=== PATIENT | female | born 1940 | race Caucasian/White ===

== ENCOUNTER → 2016-07-21 | Outpatient (CLI) | payer MEDICARE, OTHER | LOC: RAD 13:34 | PROVIDERS: ATTEND Internal Medicine Critical Care Medicine | DX: R91.8 Other nonspecific abnormal finding of lung field (principal) | CPT/HCPCS: 71250 ==

== ENCOUNTER 2016-11-14 23:11 | Inpatient (IN) | payer MEDICARE, OTHER ==
[2016-11-14] MEDS ORDERED: PREDNISONE 20 MG TABLET PO ONE (23:53)
[2016-11-14] MEDS ORDERED: IPRATROPIUM/ALBUTEROL 0.5-2.5 MG/3 ML AMPUL NEB ONE (23:53)
[2016-11-15] MEDS: ALBUTEROL SULFATE 0.083% NEB 2.5 MG/3 ML AMPUL NEB SCH ×2 (00:13→02:13)
--- NOTE | 2016-11-15 00:13 | ER Document Report ---
ED General - General Chief Complaint: Breathing Difficulty Stated Complaint: DIFFICULTY BREATHING,COUGH Time Seen by Provider: 11/15/16 00:02 Notes: Patient is a 75 year old female presents with complaint of cough, wheezing, congestion. She says symptoms started today. She's had no fevers. Some vomiting with coughing. No diarrhea. She does have history of asthma. She is a former smoker. She quit 25 years ago. No other complaints at this time. TRAVEL OUTSIDE OF THE [place] IN LAST 30 DAYS: No - Related Data Allergies/Adverse Reactions: Sulfa (Sulfonamide Antibiotics) Allergy (Verified 11/14/16 23:13) UNKNOWN lorazepam [From Ativan] Adverse Reaction (Mild, Verified 11/14/16 23:13) Confusion Irritability Past Medical History - Social History Smoking Status: Former Smoker Frequency of alcohol use: None Drug Abuse: None Family History: Arthritis, CAD, DM, Hyperlipidemia, Hypertension, Malignancy, Thyroid Disfunction - Past Medical History Cardiac Medical History: Reports: Hx Hypercholesterolemia, Hx Hypertension Denies: Hx Congestive Heart Failure, Hx Coronary Artery Disease, Hx DVT, Hx Heart Attack, Hx Pulmonary Embolism Pulmonary Medical History: Reports: Hx Asthma Denies: Hx Bronchitis, Hx COPD, Hx Pneumonia Neurological Medical History: Reports: Hx Migraine - Occasional migraine headaches, but not very often. Denies: Hx Cerebrovascular Accident, Hx Seizures Endocrine Medical History: Denies: Hx Diabetes Mellitus Type 1, Hx Diabetes Mellitus Type 2, Hx Hyperthyroidism, Hx Hypothyroidism Renal/ Medical History: Denies: Hx Peritoneal Dialysis Malignancy Medical History: Reports: Hx Skin Cancer - Previous excision of skin cancer from her face. GI Medical History: Reports: Hx Gastroesophageal Reflux Disease. Denies: Hx Cirrhosis, Hx Hepatitis, Hx Hiatal Hernia, Hx Ulcer Musculoskeltal Medical History: Reports Hx Arthritis, Reports Hx Musculoskeletal Deformity Psychiatric Medical History: Reports: Hx Anxiety Denies: Hx Depression Infectious Medical History: Denies: Hx Hepatitis Past Surgical History: Reports: Hx Tubal Ligation. Denies: Hx Hysterectomy, Hx Mastectomy, Hx Open Heart Surgery, Hx Pacemaker - Immunizations Immunizations up to date: No Hx Diphtheria, Pertussis, Tetanus Vaccination: No Hx Pneumococcal Vaccination: 07/05/09 Review of Systems - Review of Systems Notes: My Normal Review Basic REVIEW OF SYSTEMS: CONSTITUTIONAL : Denies fever, chills, or sweats. Denies recent illness. EENT: Denies eye, ear, throat, or mouth pain or symptoms. Denies nasal or sinus congestion. CARDIOVASCULAR: Denies chest pain. RESPIRATORY: Wheezing and difficulty breathing. GASTROINTESTINAL: Denies abdominal pain. Some vomiting. Denies constipation. Last BM: MUSCULOSKELETAL: Denies neck or back pain or joint pain or swelling. SKIN: Denies rash or skin lesions. NEUROLOGICAL: Denies altered mental status or loss of consciousness. Denies headache. Denies weakness or paralysis or loss of use of either side. Denies problems with gait or speech. Denies sensory or motor loss. ALL OTHER SYSTEMS REVIEWED AND NEGATIVE. Physical Exam - Vital signs Vitals: Temp Pulse Resp BP Pulse Ox 98.7 F 94 18 152/94 H 96 11/14/16 23:14 11/14/16 23:14 11/14/16 23:14 11/14/16 23:14 11/14/16 23:14 - Notes Notes: General Appearance: Well nourished, alert, cooperative, no acute distress, no obvious discomfort. Well-appearing Vitals: reviewed, See vital signs table. Head: no swelling or tenderness to the head Eyes: PERRL, EOMI, Conjuctiva clear Mouth: No decreasd moisture Throat: No tonsillar inflammation, No airway obstruction, No lymphadenopathy Neck: Supple, no neck tenderness, No thyromegaly Lungs: Scattered wheezing, No rales, No rhonci, No accessory muscle use, fair air exchange bilaterally. Heart: Normal rate, Regular rythm, No murmur, no rub Abdomen: Normal BS, soft, No rigidity, No abdominal tenderness, No guarding, no rebound, no abdominal masses, no organomegaly Extremities: strength 5/5 in all extremities, good pulses in all extremities, no swelling or tenderness in the extremities, no edema. Skin: warm, dry, appropriate color, no rash Neuro: speech clear, oriented x 3, normal affect, responds appropriately to questions. Course - Re-evaluation Re-evalutation: 11/15/16 01:40 On reevaluation patient still has some wheezing and coughing. Will give her another breathing treatment. I will give her magnesium. 11/15/16 03:30 Reevaluation patient is resting more comfortably; however, she actually says that she feels it's hard for her to get a brief and. She does not have a lot of wheezing and her lung quintanilla and selves however she seems very struggling to take a deep breath. Her oxygen saturation is in the low 90s. Her heart rate is in the 1 teens. I will repeat albuterol treatment. We are awaiting the rest of her labs to come back. 11/15/16 04:09 Reevaluation she looks like she is resting comfortably. We have her take deep breaths she starts coughing and wheezing again. Her oxygen saturation when I walked in the room is only 87-80%. She takes deep breaths her oxygen saturation comes up to 92%. She rest and bruits normally goes back down to the upper 80s. I have placed on 2 L nasal cannula. Due to her recurrent wheezing as well as hypoxia rested felt appropriate to admit her for further workup. I will call the hospitalist to speak with him about admission. - Vital Signs Vital signs: Temp Pulse Resp BP Pulse Ox 98.7 F 94 21 H 146/69 H 90 L 11/14/16 23:14 11/14/16 23:14 11/15/16 03:02 11/15/16 03:02 11/15/16 03:02 - Laboratory Result Diagrams: 11/15/16 02:19 11/15/16 03:09 Laboratory results interpreted by me: 11/15/16 11/15/16 02:19 03:09 WBC 11.4 H MCV 100 H MCH 34.7 H Seg Neuts % (Manual) 80 H Band Neutrophils % 8 H Lymphocytes % (Manual) 7 L Abs Neuts (Manual) 10.0 H Sodium 136.1 L Potassium 3.4 L BUN 30 H Est GFR (Non-Af Amer) 54 L Glucose 199 H - EKG Interpretation by Me Additional EKG results interpreted by me: 11/15/16 00:20 EKG is reviewed and interpreted by me. EKG shows sinus tachycardia with rate of [address] segment elevation or depression. Patient has a PVC every 4 beats.. Interval slightly prolonged. QRS duration QTC intervals are within normal range. Old EKG for comparison is from 04/09/2016. Discharge - Discharge Clinical Impression: Hypoxemia Dyspnea Qualifiers: Dyspnea type: unspecified Qualified Code(s): R06.00 - Dyspnea, unspecified Asthma Qualifiers: Asthma severity: unspecified severity Asthma complication type: with acute exacerbation Qualified Code(s): J45.901 - Unspecified asthma with (acute) exacerbation Condition: Stable Disposition: ADMITTED OBSERVATION Unit Admitted: Telemetry Referrals: THELMA RAMIRES PA-C [Primary Care Provider] - Follow up as needed
[2016-11-15] MEDS ORDERED: IPRATROPIUM/ALBUTEROL 0.5-2.5 MG/3 ML AMPUL NEB ONE (01:38)
[2016-11-15] MEDS ORDERED: MAGNESIUM SULFATE/D5W 100 ML IV SCH (01:45)
[2016-11-15 02:28] LABS: HEMATOCRIT 39.9 % (36.0-47.0); HEMOGLOBIN 13.8 g/dL (12.0-15.5); HGB HCT DIFFERENCE 1.5; MEAN CORPUSCULAR HEMOGLOBIN 34.7 pg (27.0-33.4); MEAN CORPUSCULAR HGB CONC 34.7 g/dL (32.0-36.0); MEAN CORPUSCULAR VOLUME 100 fl (80-97); RED BLOOD COUNT 3.98 10^6/uL (3.72-5.28); RED CELL DISTRIBUTION WIDTH 13.2 % (11.5-14.0); WHITE BLOOD COUNT 11.4 10^3/uL (4.0-10.5)
[2016-11-15] MEDS ORDERED: IBUPROFEN 600 MG TABLET PO ONE (02:45)
[2016-11-15 02:55] LABS: BAND NEUTROPHILS % (MANUAL) 8 % (3-5); BASOPHILS % (MANUAL) 0 % (0-2); EOSINOPHILS % (MANUAL) 0 % (0-6); LYMPHOCYTES % (MANUAL) 7 % (13-45); ROULEAUX SLIGHT; TOTAL CELLS COUNTED 100; TOXIC GRANULATION 1+
[2016-11-15] MEDS ORDERED: ALBUTEROL SULFATE 0.083% NEB 2.5 MG/3 ML AMPUL NEB ONE (03:29)
[2016-11-15 03:31] LABS: ANION GAP 13 (5-19); BLOOD UREA NITROGEN 30 mg/dL (7-20); CALCIUM 10.1 mg/dL (8.4-10.2); CARBON DIOXIDE 22 mmol/L (22-30); CHLORIDE 101 mmol/L (98-107); CREATININE RESULT 0.99 mg/dL (0.52-1.25); GLUCOSE 199 mg/dL (75-110); POTASSIUM 3.4 mmol/L (3.6-5.0); SODIUM 136.1 mmol/L (137-145)
[2016-11-15] MEDS ORDERED: POTASSIUM CHLORIDE 10 MEQ TABLET.SA PO ONE ×2 (04:05→10:30)
[2016-11-15] MEDS ORDERED: ALBUTEROL SULFATE 0.083% NEB 2.5 MG/3 ML AMPUL NEB PRN (04:41)
[2016-11-15] MEDS ORDERED: ACETAMINOPHEN 325 MG TABLET PO PRN (04:41)
[2016-11-15] MEDS ORDERED: CHLORPHENIRAMINE MALEATE 4 MG TABLET PO PRN (04:44)
[2016-11-15] MEDS ORDERED: LORATADINE 10 MG TABLET PO ONE (04:44)
[2016-11-15] MEDS ORDERED: CHLORPHENIRAMINE MALEATE 4 MG TABLET PO ONE (04:44)
[2016-11-15] MEDS ORDERED: BUDESONIDE/FORMOTEROL 80-4.5 MCG 60 PUFF/6.9 GM MDI IH PRN (04:44)
[2016-11-15] MEDS ORDERED: NORMAL SALINE 1000 ML 1,000 ML IV SCH (04:45)
[2016-11-15] MEDS ORDERED: CEFEPIME 2 GM/D5W RTU 2 GM/50 ML RTUPB IV SCH (05:00)
[2016-11-15] MEDS: METOPROLOL TARTRATE 50 MG TABLET PO SCH ×2 (05:39→17:45)
[2016-11-15] MEDS: HEPARIN SOD (PORCINE) 5,000 UNIT/ML 1 ML SYRINGE SUBCUT SCH ×3 (05:41→22:12)
[2016-11-15] MEDS ORDERED: FLUTICASONE NASAL SPRAY 50 MCG/SPRY 120 SPRAY/16 GM ONE (06:05)
[2016-11-15] MEDS ORDERED: CHLORPHENIRAMINE MALEATE 4 MG TABLET ONE (06:05)
[2016-11-15] MEDS: IPRATROPIUM/ALBUTEROL 0.5-2.5 MG/3 ML AMPUL NEB SCH ×2 (08:08→15:57)
[2016-11-15] MEDS ORDERED: ROPINIROLE HCL PO PRN (09:29)
[2016-11-15] MEDS: MAGNESIUM OXIDE 400 MG TABLET PO SCH ×2 (09:59→17:45)
[2016-11-15] MEDS: ASPIRIN 81 MG TABLET, CHEWABLE PO SCH (09:59)
[2016-11-15] MEDS: LEVOFLOXACIN 750 MG/D5W RTU 150 ML IV SCH (10:00)
[2016-11-15] MEDS ORDERED: (PENDING PHARMACY ID) (Lisinopril [Lisinopril] 1 TAB) PO SCH (10:00)
[2016-11-15] MEDS: FLUTICASONE NASAL SPRAY 50 MCG/SPRY 120 SPRAY/16 GM NASL SCH (10:00)
[2016-11-15] MEDS ORDERED: (PENDING PHARMACY ID) (Losartan/Hydrochlorothiazide [Hyzaar 100-25 Tablet] 1 EACH) PO SCH (10:00)
[2016-11-15] MEDS ORDERED: (PENDING PHARMACY ID) (Omeprazole [Prilosec 40 Mg Capsule] 40 MG) PO SCH (10:00)
[2016-11-15] MEDS ORDERED: ROPINIROLE HCL 1 MG TABLET PO PRN (10:25)
[2016-11-15] MEDS ORDERED: LOSARTAN POTASSIUM 50 MG TABLET PO ONE (11:30)
[2016-11-15] MEDS ORDERED: HYDROCHLOROTHIAZIDE 25 MG TABLET PO ONE (11:30)
--- NOTE | 2016-11-15 11:37 | EKG REPORT ---
SEVERITY:- ABNORMAL ECG - SINUS TACHYCARDIA PAIRED VENTRICULAR PREMATURE COMPLEXES FIRST DEGREE AV BLOCK PROBABLE LEFT ATRIAL ABNORMALITY : Confirmed by: Barry Rodgers 15-Nov-2016 11:36:44
[2016-11-15] MEDS: METHYLPREDNISOLONE INJ 40 MG/1 ML SDV IV SCH ×2 (13:38→22:12)
--- NOTE | 2016-11-15 13:46 | PDOC PROGRESS REPORT ---
Subjective Progress Note for:: 11/15/16 Subjective:: Patient seen on morning rounds. She is resting in bed. Her 2 daughters are at bedside. Patient states her breathing feels much easier than when she came in last night. She continues to have a nonproductive cough. She denies any significant dyspnea or chest pain. She denies any fever or chills. She denies any nausea, vomiting or abdominal pain. She states she is tired from being up all night. She otherwise has no complaints. Rest of the review of systems is normal. Physical Exam Vital Signs: Temp Pulse Resp BP Pulse Ox 98.7 F 87 8 L 130/67 H 100 11/15/16 11:54 11/15/16 11:54 11/15/16 11:54 11/15/16 11:54 11/15/16 11:54 Intake & Output 11/14/16 11/15/16 11/16/16 06:59 06:59 06:59 Intake Total 225 Balance 225 Weight 58.3 kg General appearance: PRESENT: no acute distress, well-developed, well-nourished Head exam: PRESENT: atraumatic, normocephalic Eye exam: PRESENT: conjunctiva pink, EOMI, PERRLA. ABSENT: scleral icterus Ear exam: PRESENT: normal external ear exam Mouth exam: PRESENT: dry mucosa Neck exam: ABSENT: carotid bruit, JVD, lymphadenopathy, thyromegaly Respiratory exam: PRESENT: decreased breath sounds - bilateral expiratory wheezing, symmetrical, unlabored, wheezes Cardiovascular exam: PRESENT: RRR. ABSENT: diastolic murmur, rubs, systolic murmur Pulses: PRESENT: normal dorsalis pedis pul Vascular exam: PRESENT: normal capillary refill GI/Abdominal exam: PRESENT: normal bowel sounds, soft. ABSENT: distended, guarding, mass, organolmegaly, rebound, tenderness Rectal exam: PRESENT: deferred Extremities exam: PRESENT: full ROM. ABSENT: calf tenderness, clubbing, pedal edema Neurological exam: PRESENT: alert, awake, oriented to person, oriented to place , oriented to time, oriented to situation, CN II-XII grossly intact. ABSENT: motor sensory deficit Psychiatric exam: PRESENT: appropriate affect, normal mood. ABSENT: homicidal ideation, suicidal ideation Skin exam: PRESENT: dry, intact, warm. ABSENT: cyanosis, rash Results Impressions: Chest X-Ray 11/14/16 23:54 IMPRESSION: No acute radiographic finding in the chest. Assessment & Plan - Diagnosis (1) Acute on chronic respiratory failure with hypoxemia Is this a current diagnosis for this admission?: YesPlan: Patient is on IV broad spectrum antibiotics, IV steroids and nebulizer treatments. She is not on home oxygen therapy (2) Asthma Qualifiers: Asthma severity: unspecified severity Asthma complication type: with acute exacerbation Qualified Code(s): J45.901 - Unspecified asthma with ( acute) exacerbation Is this a current diagnosis for this admission?: YesPlan: Continue home inhalers and medications (3) Dyspnea Qualifiers: Dyspnea type: unspecified Qualified Code(s): R06.00 - Dyspnea, unspecified Is this a current diagnosis for this admission?: YesPlan: Secondary to acute URI in setting of chronic asthma (4) Hypokalemia Is this a current diagnosis for this admission?: YesPlan: Replete and monitor (5) Nodule of right lung Is this a current diagnosis for this admission?: YesPlan: Monitor as an outpatient - Time Time Spent with patient: 25-34 minutes Critical Time spent with patient: 15-24 minutes Medications reviewed and adjusted accordingly: Yes
[2016-11-15] MEDS ORDERED: ATORVASTATIN CALCIUM 20 MG TABLET PO SCH (22:00)
[2016-11-15] MEDS: MONTELUKAST SODIUM 10 MG TABLET PO SCH (22:12)
[2016-11-15] MEDS ORDERED: CEFEPIME 2 GM/D5W RTU 2 GM/50 ML RTUPB IV ONE (22:30)
[2016-11-16] MEDS: IPRATROPIUM/ALBUTEROL 0.5-2.5 MG/3 ML AMPUL NEB SCH ×4 (00:26→23:48)
[2016-11-16 05:25] LABS: HEMATOCRIT 33.8 % (36.0-47.0); HGB HCT DIFFERENCE 1.3; MEAN CORPUSCULAR HEMOGLOBIN 34.7 pg (27.0-33.4); MEAN CORPUSCULAR HGB CONC 34.6 g/dL (32.0-36.0); MEAN CORPUSCULAR VOLUME 100 fl (80-97); RED BLOOD COUNT 3.37 10^6/uL (3.72-5.28); RED CELL DISTRIBUTION WIDTH 12.9 % (11.5-14.0); WHITE BLOOD COUNT 10.9 10^3/uL (4.0-10.5)
[2016-11-16 05:31] LABS: HEMOGLOBIN 11.7 g/dL (12.0-15.5)
[2016-11-16 05:37] LABS: BAND NEUTROPHILS % (MANUAL) 8 % (3-5); BASOPHILS % (MANUAL) 0 % (0-2); EOSINOPHILS % (MANUAL) 0 % (0-6); LYMPHOCYTES % (MANUAL) 4 % (13-45); TOTAL CELLS COUNTED 100
[2016-11-16 05:41] LABS: ANION GAP 13 (5-19); BLOOD UREA NITROGEN 24 mg/dL (7-20); CALCIUM 10.2 mg/dL (8.4-10.2); CARBON DIOXIDE 23 mmol/L (22-30); CHLORIDE 102 mmol/L (98-107); CREATININE RESULT 0.95 mg/dL (0.52-1.25); GLUCOSE 155 mg/dL (75-110); PLATELET CLUMPS PRESENT; POIKILOCYTOSIS SLIGHT; POLYCHROMASIA SLIGHT; POTASSIUM 3.9 mmol/L (3.6-5.0); SODIUM 138.2 mmol/L (137-145); TARGET CELLS SLIGHT
[2016-11-16 05:42] LABS: TOXIC GRANULATION 1+
[2016-11-16] MEDS: HEPARIN SOD (PORCINE) 5,000 UNIT/ML 1 ML SYRINGE SUBCUT SCH ×3 (06:01→21:24)
[2016-11-16] MEDS: METHYLPREDNISOLONE INJ 40 MG/1 ML SDV IV SCH ×2 (06:01→21:24)
[2016-11-16] MEDS: METOPROLOL TARTRATE 50 MG TABLET PO SCH ×2 (06:02→17:26)
[2016-11-16] MEDS: LANSOPRAZOLE 30 MG TAB.RAP.DR PO SCH (06:02)
--- NOTE | 2016-11-16 07:13 | PDOC H&P ---
History of Present Illness Admission Date/PCP: 11/15/16 04:41 THELMA RAMIRES PA-C Patient complains of: Shortness of breath History of Present Illness: JANINE TAYLOR is a 75 year old female with history of COPD. Patient has complaint of 4 days of upper respiratory symptoms of rhinorrhea and sore throat with intermittent nonproductive cough developing shortness of breath prompting her to seek evaluation emergency room where she's found to be tachypneic with leukocytosis. She receive several breathing treatments without significant response and is referred to the hospitalist for admission. Patient denies chest pain nausea vomiting or palpitations denying recent change in medications. Past Medical History Cardiac Medical History: Reports: Hyperlipidema, Hypertension Denies: Congestive Heart Failure, Coronary Artery Disease, DVT, Myocardial Infarction, Pulmonary Embolism Pulmonary Medical History: Reports: Asthma Denies: Bronchitis, Chronic Obstructive Pulmonary Disease (COPD), Pneumonia Neurological Medical History: Reports: Migraine - Occasional migraine headaches , but not very often Denies: Seizures Endocrine Medical History: Denies: Diabetes Mellitus Type 1, Diabetes Mellitus Type 2, Hyperthyroidism, Hypothyroidism Malignancy Medical History: Reports: Skin Cancer - Previous excision of skin cancer from her face. GI Medical History: Reports: Gastroesophageal Reflux Disease Denies: Cirrhosis, Hepatitis, Hiatal Hernia Musculoskeltal Medical History: Reports: Arthritis Psychiatric Medical History: Denies: Depression Hematology: Reports: Anemia - HX OF Denies: Sickle Cell Disease Past Surgical History Past Surgical History: Reports: Tubal Ligation Denies: Amputation, Hysterectomy, Mastectomy, Pacemaker Social History Information Source: Patient Lives with: Family Smoking Status: Former Smoker Cigarettes Packs Per Day: 1 Cigars Per Day: 0 Pipes Per Day: 0 Number of Years Smokin Last Time Smoked: 07/05/1994 Frequency of Alcohol Use: Social Hx Recreational Drug Use: No Drugs: None Hx Prescription Drug Abuse: No - Advance Directive Resuscitation Status: Full Code Family History Family History: Arthritis, CAD, DM, Hyperlipidemia, Hypertension, Malignancy, Thyroid Disfunction Parental Family History Reviewed: Yes Children Family History Reviewed: Yes Sibling(s) Family History Reviewed.: Yes Medication/Allergy Home Medications: Aspirin [Aspirin 81 mg Chewable Tablet] 81 mg PO DAILY 12/08/11 Atorvastatin Calcium [Lipitor 20 mg Tablet] 10 mg PO QHS 12/08/11 Metoprolol Tartrate [Lopressor 50 mg Tablet] 50 mg PO Q12 12/08/11 Omeprazole [Prilosec 40 mg Capsule] 40 mg PO DAILY 12/08/11 Budesonide/Formoterol Fumarate [Symbicort HFA 80-4.5 mcg Inhaler 6.9 gm] 1 puff IH QHS 09/07/12 Epinephrine [Epipen 0.3 mg/0.3 mL AutoInject] 1 ea IM ASDIR PRN #1 autoinject Albuterol Sulfate [Proair HFA Inhalation Aerosol 8.5 gm MDI] 2 puff IN Q4HP PRN 04/08/16 Lisinopril 20 mg PO BID 04/08/16 Montelukast Sodium 10 mg PO QHS 04/08/16 Ropinirole HCl 1 tab PO DAILY PRN 04/08/16 Acetaminophen [Tylenol 325 mg Tablet] 650 mg PO Q4HP PRN 11/15/16 Docusate Sodium [Colace 100 mg Capsule] 100 mg PO BID PRN 11/15/16 Losartan/Hydrochlorothiazide [Hyzaar 100-25 Tablet] 1 each PO DAILY 11/15/16 Allergies/Adverse Reactions: Sulfa (Sulfonamide Antibiotics) Allergy (Verified 11/14/16 23:13) UNKNOWN lorazepam [From Ativan] Adverse Reaction (Mild, Verified 11/14/16 23:13) Confusion Irritability Review of Systems Constitutional: ABSENT: chills, fever(s), headache(s), weight gain, weight loss Eyes: ABSENT: visual disturbances Ears: ABSENT: hearing changes Cardiovascular: ABSENT: chest pain, dyspnea on exertion, edema, orthropnea, palpitations Respiratory: PRESENT: cough, dyspnea. ABSENT: hemoptysis, sputum Gastrointestinal: ABSENT: abdominal pain, constipation, diarrhea, hematemesis, hematochezia, nausea, vomiting Genitourinary: ABSENT: dysuria, hematuria Musculoskeletal: ABSENT: joint swelling Integumentary: ABSENT: rash, wounds Neurological: ABSENT: abnormal gait, abnormal speech, confusion, dizziness, focal weakness, syncope Psychiatric: ABSENT: anxiety, depression, homidical ideation, suicidal ideation Endocrine: ABSENT: cold intolerance, heat intolerance, polydipsia, polyuria Hematologic/Lymphatic: ABSENT: easy bleeding, easy bruising Physical Exam Vital Signs: Temp Pulse Resp BP Pulse Ox 98.6 F 88 18 133/66 H 100 11/16/16 03:53 11/16/16 03:53 11/16/16 03:53 11/16/16 03:53 11/16/16 03:53 Intake & Output 11/14/16 11/15/16 11/16/16 11:59 11:59 11:59 Intake Total 225 1030 Balance 225 1030 Weight 58.3 kg 59.2 kg General appearance: PRESENT: cooperative, mild distress, thin Head exam: PRESENT: atraumatic, normocephalic Eye exam: PRESENT: conjunctiva pink, EOMI, PERRLA. ABSENT: scleral icterus Ear exam: PRESENT: normal external ear exam Mouth exam: PRESENT: moist, tongue midline Neck exam: ABSENT: carotid bruit, JVD, lymphadenopathy, thyromegaly Respiratory exam: PRESENT: accessory muscle use, prolonged expiratory phas, retraction, symmetrical, tachypnea, wheezes. ABSENT: rhonchi, stridor Cardiovascular exam: PRESENT: RRR. ABSENT: diastolic murmur, rubs, systolic murmur Pulses: PRESENT: normal dorsalis pedis pul Vascular exam: PRESENT: normal capillary refill GI/Abdominal exam: PRESENT: normal bowel sounds, soft. ABSENT: distended, guarding, mass, organolmegaly, rebound, tenderness Rectal exam: PRESENT: deferred Extremities exam: PRESENT: full ROM. ABSENT: calf tenderness, clubbing, pedal edema Neurological exam: PRESENT: alert, awake, oriented to person, oriented to place , oriented to time, oriented to situation, CN II-XII grossly intact. ABSENT: motor sensory deficit Psychiatric exam: PRESENT: appropriate affect, normal mood. ABSENT: homicidal ideation, suicidal ideation Skin exam: PRESENT: dry, intact, warm. ABSENT: cyanosis, rash Results Laboratory Results: 11/16/16 04:25 11/16/16 04:25 11/16/16 11/16/16 04:25 04:25 WBC 10.9 H RBC 3.37 L Hgb 11.7 L D Hct 33.8 L MCV 100 H MCH 34.7 H MCHC 34.6 RDW 12.9 Plt Count 178 Seg Neutrophils % Not Reportable Lymphocytes % Not Reportable Monocytes % Not Reportable Eosinophils % Not Reportable Basophils % Not Reportable Absolute Neutrophils Not Reportable Absolute Lymphocytes Not Reportable Absolute Monocytes Not Reportable Absolute Eosinophils Not Reportable Absolute Basophils Not Reportable Sodium 138.2 Potassium 3.9 Chloride 102 Carbon Dioxide 23 Anion Gap 13 BUN 24 H Creatinine 0.95 Est GFR ( Amer) > 60 Est GFR (Non-Af Amer) 57 L Glucose 155 H Calcium 10.2 Impressions: Chest X-Ray 11/14/16 23:54 IMPRESSION: No acute radiographic finding in the chest. Assessment & Plan - Diagnosis (1) Acute exacerbation of chronic bronchitis Is this a current diagnosis for this admission?: YesPlan: Empiric antibiotics, albuterol and Atrovent, supplemental oxygen, flutter valve and aggressive pulmonary toilet (2) Acute on chronic respiratory failure with hypoxemia Is this a current diagnosis for this admission?: YesPlan: Please see #1 consider follow-up chest x-ray or CT chest given tobacco history - Time Time Spent: 30 to 50 Minutes
--- NOTE | 2016-11-16 07:59 | Physician Advisory Note ---
Physician Advisor ProgressNote .: Pursuant to the plan for [facility], I have reviewed the medical record for this patient. Physician Advisor Statement: Possible documentation opportunities if attending agrees: 1. Status/medical necessity: appropriate for Inpt status with explicit documentation of why pt not yet sufficiently improved clinically for d/c on . (see below) - Need to make it clear she wasn't just kept for convenience because she was sleepy from being up all night.... (This reviewer can "read between the lines", but outside reviewers won't.) 2. "mild hyponatremia, likely due to intravascular volume depletion, due to decreased po intake from difficulty breathing" [or ...] 3. ?"Acute bronchitis", or what is being tx'd w/IV abx 4. Please specify type of asthma present. Dx of type of chronic asthma is based on worst category in which pt has at least 1 of following s/s present at baseline: A. Mild Intermittent: only needs albuterol occasionally. B. Mild Persistent: sx >2x/wk, nocturnal sx up to 4x/mo, FEV1 80+% predicted C. Mod Persistent: sx (or albuterol) daily, nocturnal sx >1x/wk, FEV1 60-80% predicted D. Severe Persistent: activities curtailed, frequent exacerbations, noct sx frequent, FEV1 <60% predicted. As always, if concerned about any unstable VS or abnormal labs, please comment on them - what bad things they might indicate, why they concern you - & note what doing about them. Please also document each day the potential clinical problems you are concerned could occur if pt not kept in hospital for tx at this time. (These points are minor - if present in each note, attending's status decision should be sufficiently supported.) Discussion: 75yo female w/ chronic co-morbidities including __type asthma, ?COPD, & GERD, HTN, HLD - presented late 5/13 PM to ED w/SOB, cough to the point of vomiting, wheezing , congestion. (+) HR 94, RR 18-23, O2 sats as low as 87% at rest in ED, still w/accessory muscle use & retractions at time of H&P. WBC 11.4, Na 136, K 3.4, BUN 30, Cr 0.99, glc 199. ED dr sayra Lemus x2, albuterol nebx q15min x2 & still a 3rd + IV Mag, Prednisone 60mg. Attending ordered Cefepime, Levaquin, Duonebs q8h, albuterol nebs prn, NS @200ml /hr x 2L, Solumedrol 40mg IV q8h. Status: This elderly Medicare pt with asthma exacerbation was still wheezing & coughing with deep breaths after several nebs + IV Mag in ED, still "struggling to take a deep breath", & hypoxemic, with tachypnea as high as 37 at 3AM on 11/15 & persistent tachycardia above 100 until at least 6AM. By time of rounding on , breathing easier but still decreased breath sounds & expiratory wheezing, Not sufficiently improved for d/c, & certainly not yet showing ability to maintain improvement sufficiently for d/c to be considered safe. Needing continued tx & close monitoring for at least a 2nd MN in inpatient hospital setting, medically reasonable & necessary to protect pt's health, safety, & medical condition. Appropriate for Inpt status with explicit documentation of reasons she could not go home 11/15. Also, after 2MNs in hospital, pt still w/BUN/Cr ratio >20 consistent with continued intravascular volume depletion despite 2L IVF.... Thanks for your help with documentation accuracy/specificity improvement! Jaimee Jean MD [facility] Physician Advisor, Fellow of Hospital Medicine
[2016-11-16] MEDS ORDERED: CHLORPHENIRAMINE MALEATE 4 MG TABLET PO PRN (08:49)
[2016-11-16] MEDS: LISINOPRIL 10 MG TABLET PO SCH ×2 (09:21→21:24)
[2016-11-16] MEDS: MAGNESIUM OXIDE 400 MG TABLET PO SCH ×2 (09:22→17:26)
[2016-11-16] MEDS: ASPIRIN 81 MG TABLET, CHEWABLE PO SCH (09:22)
[2016-11-16] MEDS: HYDROCHLOROTHIAZIDE 25 MG TABLET PO SCH (09:22)
[2016-11-16] MEDS: LOSARTAN POTASSIUM 50 MG TABLET PO SCH (09:22)
[2016-11-16] MEDS: CEFEPIME HCL 2 GM in DEXTROSE 5%-WATER 50 ML IV SCH ×2 (09:23→21:28)
[2016-11-16] MEDS: LEVOFLOXACIN 750 MG/D5W RTU 150 ML IV SCH (09:23)
[2016-11-16] MEDS: FLUTICASONE NASAL SPRAY 50 MCG/SPRY 120 SPRAY/16 GM NASL SCH (09:24)
[2016-11-16] MEDS: BUDESONIDE/FORMOTEROL 80-4.5 MCG 60 PUFF/6.9 GM MDI IH SCH (11:32)
--- NOTE | 2016-11-16 14:24 | PDOC PROGRESS REPORT ---
Subjective Progress Note for:: 11/16/16 Subjective:: Patient seen on morning rounds. She is resting in bed. Her 2 daughters are at bedside. Patient states her breathing is improved since admission. She is still having harsh cough and moderate intermittent wheezing. She denies any significant dyspnea or chest pain. She denies any fever or chills. She denies any nausea, vomiting or abdominal pain. She otherwise has no complaints. Rest of the review of systems is normal. Physical Exam Vital Signs: Temp Pulse Resp BP Pulse Ox 98.0 F 84 16 131/57 H 97 11/16/16 12:46 11/16/16 12:46 11/16/16 12:46 11/16/16 12:46 11/16/16 12:46 Intake & Output 11/15/16 11/16/16 11/17/16 06:59 06:59 06:59 Intake Total 1255 Balance 1255 Weight 59.2 kg General appearance: PRESENT: no acute distress, well-developed, well-nourished Head exam: PRESENT: atraumatic, normocephalic Eye exam: PRESENT: conjunctiva pink, EOMI, PERRLA. ABSENT: scleral icterus Ear exam: PRESENT: normal external ear exam Mouth exam: PRESENT: moist, tongue midline Neck exam: ABSENT: carotid bruit, JVD, lymphadenopathy, thyromegaly Respiratory exam: PRESENT: symmetrical, unlabored - mild expiratory wheezes, wheezes Cardiovascular exam: PRESENT: RRR. ABSENT: diastolic murmur, rubs, systolic murmur Pulses: PRESENT: normal dorsalis pedis pul Vascular exam: PRESENT: normal capillary refill GI/Abdominal exam: PRESENT: normal bowel sounds, soft. ABSENT: distended, guarding, mass, organolmegaly, rebound, tenderness Rectal exam: PRESENT: deferred Extremities exam: PRESENT: full ROM. ABSENT: calf tenderness, clubbing, pedal edema Neurological exam: PRESENT: alert, awake, oriented to person, oriented to place , oriented to time, oriented to situation, CN II-XII grossly intact. ABSENT: motor sensory deficit Psychiatric exam: PRESENT: appropriate affect, normal mood. ABSENT: homicidal ideation, suicidal ideation Skin exam: PRESENT: dry, intact, warm. ABSENT: cyanosis, rash Results Laboratory Results: 11/16/16 04:25 11/16/16 04:25 11/16/16 11/16/16 04:25 04:25 WBC 10.9 H RBC 3.37 L Hgb 11.7 L D Hct 33.8 L MCV 100 H MCH 34.7 H MCHC 34.6 RDW 12.9 Plt Count 178 Seg Neutrophils % Not Reportable Lymphocytes % Not Reportable Monocytes % Not Reportable Eosinophils % Not Reportable Basophils % Not Reportable Absolute Neutrophils Not Reportable Absolute Lymphocytes Not Reportable Absolute Monocytes Not Reportable Absolute Eosinophils Not Reportable Absolute Basophils Not Reportable Sodium 138.2 Potassium 3.9 Chloride 102 Carbon Dioxide 23 Anion Gap 13 BUN 24 H Creatinine 0.95 Est GFR ( Amer) > 60 Est GFR (Non-Af Amer) 57 L Glucose 155 H Calcium 10.2 Impressions: Chest X-Ray 11/14/16 23:54 IMPRESSION: No acute radiographic finding in the chest. Assessment & Plan - Diagnosis (1) Acute on chronic respiratory failure with hypoxemia Is this a current diagnosis for this admission?: YesPlan: Patient is on IV broad spectrum antibiotics for acute bronchitis versus early CAP, IV steroids and nebulizer treatments. She is not on home oxygen therapy. Oxygen saturations have improved overnight. (2) Asthma Qualifiers: Asthma severity: moderate persistent Asthma complication type: with acute exacerbation Qualified Code(s): J45.41 - Moderate persistent asthma with (acute) exacerbation Is this a current diagnosis for this admission?: Yes (3) Dyspnea Qualifiers: Dyspnea type: shortness of breath Qualified Code(s): R06.02 - Shortness of breath Is this a current diagnosis for this admission?: YesPlan: Secondary to acute bronchitis in setting of chronic moderate asthma (4) Hypokalemia Is this a current diagnosis for this admission?: YesPlan: Replete and monitor (5) Nodule of right lung Is this a current diagnosis for this admission?: YesPlan: Monitor as an outpatient - Time Time Spent with patient: 25-34 minutes Critical Time spent with patient: 15-24 minutes Medications reviewed and adjusted accordingly: Yes Anticipated discharge: Home Within: within 24 hours
[2016-11-16] MEDS: MONTELUKAST SODIUM 10 MG TABLET PO SCH (21:24)
[2016-11-16] MEDS ORDERED: ATORVASTATIN CALCIUM 10 MG TABLET PO SCH (22:00)
[2016-11-17] MEDS: METOPROLOL TARTRATE 50 MG TABLET PO SCH (05:58)
[2016-11-17] MEDS: HEPARIN SOD (PORCINE) 5,000 UNIT/ML 1 ML SYRINGE SUBCUT SCH (05:58)
[2016-11-17] MEDS: LANSOPRAZOLE 30 MG TAB.RAP.DR PO SCH (05:58)
[2016-11-17] MEDS: IPRATROPIUM/ALBUTEROL 0.5-2.5 MG/3 ML AMPUL NEB SCH (07:40)
[2016-11-17] MEDS ORDERED: LEVOFLOXACIN 750 MG TABLET PO SCH (10:00)
[2016-11-17] MEDS: MAGNESIUM OXIDE 400 MG TABLET PO SCH (10:23)
[2016-11-17] MEDS: BUDESONIDE/FORMOTEROL 80-4.5 MCG 60 PUFF/6.9 GM MDI IH SCH (10:24)
[2016-11-17] MEDS: HYDROCHLOROTHIAZIDE 25 MG TABLET PO SCH (10:24)
[2016-11-17] MEDS: ASPIRIN 81 MG TABLET, CHEWABLE PO SCH (10:24)
[2016-11-17] MEDS: LOSARTAN POTASSIUM 50 MG TABLET PO SCH (10:25)
[2016-11-17] MEDS: LISINOPRIL 10 MG TABLET PO SCH (10:25)
[2016-11-17] MEDS: FLUTICASONE NASAL SPRAY 50 MCG/SPRY 120 SPRAY/16 GM NASL SCH (10:26)
[2016-11-17] MEDS: CEFEPIME HCL 2 GM in DEXTROSE 5%-WATER 50 ML IV SCH (10:30)
[2016-11-17] MEDS: METHYLPREDNISOLONE INJ 40 MG/1 ML SDV IV SCH (10:30)
[2016-11-17 12:26] VITALS: BP 155/74
--- NOTE | 2016-11-17 16:22 | PDOC DISCHARGE SUMMARY ---
General - Admit/Disc Date/PCP Admission Date/Primary Care Provider: 11/15/16 08:55 THELMA RAMIRES PA-C Discharge Date: 11/17/16 - Discharge Diagnosis (1) Acute exacerbation of chronic bronchitis Is this a current diagnosis for this admission?: YesSummary: The patient has responded to current antibiotic coverage will transition to by mouth therapy (2) Acute on chronic respiratory failure with hypoxemia Is this a current diagnosis for this admission?: YesSummary: Secondary to #1 this has improved (3) Asthma Is this a current diagnosis for this admission?: Yes (4) Hypokalemia Is this a current diagnosis for this admission?: YesSummary: Replaced (5) Nodule of right lung Is this a current diagnosis for this admission?: YesSummary: Will require monitoring in outpatient setting (6) Hyponatremia Is this a current diagnosis for this admission?: YesSummary: Improved with hydration (7) Thoracic compression fracture Is this a current diagnosis for this admission?: No - Additional Information Resuscitation Status: Full Code Discharge Diet: As Tolerated Discharge Activity: Activity As Tolerated Home Medications: Aspirin [Aspirin 81 mg Chewable Tablet] 81 mg PO DAILY 12/08/11 Atorvastatin Calcium [Lipitor 20 mg Tablet] 10 mg PO QHS 12/08/11 Metoprolol Tartrate [Lopressor 50 mg Tablet] 50 mg PO Q12 12/08/11 Omeprazole [Prilosec 40 mg Capsule] 40 mg PO DAILY 12/08/11 Budesonide/Formoterol Fumarate [Symbicort HFA 80-4.5 mcg Inhaler 6.9 gm] 1 puff IH QHS 09/07/12 Epinephrine [Epipen 0.3 mg/0.3 mL AutoInject] 1 ea IM ASDIR PRN #1 autoinject Albuterol Sulfate [Proair HFA Inhalation Aerosol 8.5 gm MDI] 2 puff IN Q4HP PRN 04/08/16 Lisinopril 20 mg PO BID 04/08/16 Montelukast Sodium 10 mg PO QHS 04/08/16 Ropinirole HCl 1 tab PO DAILY PRN 04/08/16 Acetaminophen [Tylenol 325 mg Tablet] 650 mg PO Q4HP PRN 11/15/16 Docusate Sodium [Colace 100 mg Capsule] 100 mg PO BID PRN 11/15/16 Losartan/Hydrochlorothiazide [Hyzaar 100-25 Tablet] 1 each PO DAILY 11/15/16 Cefpodoxime Proxetil [Vantin 100 mg Tablet] 1 tab PO Q12 #14 tab 11/17/16 Fluticasone Propionate [Flonase Nasal [place] 50 Mcg/[place] 16 gm] 2 spray NASL DAILY #1 spray.pump 11/17/16 Levofloxacin [Levaquin 750 mg Tablet] 750 mg PO DAILY #7 tablet 11/17/16 Prednisone [Deltasone 10 mg Tablet] 10 mg PO ASDIR PRN #21 tablet 11/17/16 History of Present Illness Patient complains of: Shortness of breath History of Present Illness: JANINE TAYLOR is a 75 year old female with history of chronic obstructive pulmonary disease that presented to the emergency department with complaint of 4 days of upper respiratory symptoms of rhinorrhea and sore throat with intermittent nonproductive cough developing shortness of breath. Upon presentation the patient was found to be tachypneic with leukocytosis. The patient received several breathing treatments without significant response and is referred to the hospitalist for admission. Patient denied chest pain nausea vomiting or palpitations denying recent change in medications. Hospital Course Hospital Course: The patient was admitted to telemetry. The patient was placed on scheduled nebs as well as PRN nebs, steroids, and supplemental oxygen. The patient was also started on Flonase and incentive spirometer. Given the patient's risk factors she was covered with stool antibiotic coverage with improvement of symptoms. The patient's oxygen, steroids, and nebs were titrated and weaned. Unfortunately sputum specimen was unable to be produce. The patient is back to baseline and able to complete sentences. The patient was ambulated on room air and oxygen did not drop below 93%. Physical Exam Vital Signs: Temp Pulse Resp BP Pulse Ox 98.1 F 75 16 152/67 H 93 11/17/16 11:44 11/17/16 11:44 11/17/16 11:44 11/17/16 11:44 11/17/16 11:44 Intake & Output 11/15/16 11/16/16 11/17/16 23:59 23:59 23:59 Intake Total 1255 940 Balance 1255 940 Weight 59.2 kg 59 kg General appearance: PRESENT: no acute distress, cooperative, well-developed, well-nourished Head exam: PRESENT: atraumatic, normocephalic Eye exam: PRESENT: conjunctiva pink, EOMI, PERRLA. ABSENT: scleral icterus Ear exam: PRESENT: normal external ear exam Mouth exam: PRESENT: moist, tongue midline Neck exam: ABSENT: carotid bruit, JVD, lymphadenopathy, thyromegaly Respiratory exam: PRESENT: decreased breath sounds, symmetrical, unlabored. ABSENT: rales, rhonchi, tachypnea, wheezes Cardiovascular exam: PRESENT: RRR. ABSENT: diastolic murmur, rubs, systolic murmur Pulses: PRESENT: normal dorsalis pedis pul Vascular exam: PRESENT: normal capillary refill GI/Abdominal exam: PRESENT: normal bowel sounds, soft. ABSENT: distended, guarding, mass, organolmegaly, rebound, tenderness Rectal exam: PRESENT: deferred Extremities exam: PRESENT: full ROM. ABSENT: calf tenderness, clubbing, pedal edema Neurological exam: PRESENT: alert, awake, oriented to person, oriented to place , oriented to time, oriented to situation, CN II-XII grossly intact. ABSENT: motor sensory deficit Psychiatric exam: PRESENT: appropriate affect, normal mood. ABSENT: homicidal ideation, suicidal ideation Skin exam: PRESENT: dry, intact, warm. ABSENT: cyanosis, rash Results Laboratory Results: Labs- Last Values WBC 10.9 10^3/uL (4.0-10.5) H 11/16/16 04:25 RBC 3.37 10^6/uL (3.72-5.28) L 11/16/16 04:25 Hgb 11.7 g/dL (12.0-15.5) L D 11/16/16 04:25 Hct 33.8 % (36.0-47.0) L 11/16/16 04:25 MCV 100 fl (80-97) H 11/16/16 04:25 MCH 34.7 pg (27.0-33.4) H 11/16/16 04:25 MCHC 34.6 g/dL (32.0-36.0) 11/16/16 04:25 RDW 12.9 % (11.5-14.0) 11/16/16 04:25 Plt Count 178 10^3/uL (150-450) 11/16/16 04:25 Total Counted 100 11/16/16 04:25 Seg Neutrophils % Not Reportable 11/16/16 04:25 Seg Neuts % (Manual) 85 % (42-78) H 11/16/16 04:25 Band Neutrophils % 8 % (3-5) H 11/16/16 04:25 Lymphocytes % Not Reportable 11/16/16 04:25 Lymphocytes % (Manual) 4 % (13-45) L 11/16/16 04:25 Atypical Lymphs % 2 % (0) 11/15/16 02:19 Monocytes % Not Reportable 11/16/16 04:25 Monocytes % (Manual) 3 % (3-13) 11/16/16 04:25 Eosinophils % Not Reportable 11/16/16 04:25 Eosinophils % (Manual) 0 % (0-6) 11/16/16 04:25 Basophils % Not Reportable 11/16/16 04:25 Basophils % (Manual) 0 % (0-2) 11/16/16 04:25 Absolute Neutrophils Not Reportable 11/16/16 04:25 Abs Neuts (Manual) 10.1 10^3/uL (1.7-8.2) H 11/16/16 04:25 Absolute Lymphocytes Not Reportable 11/16/16 04:25 Abs Lymphs (Manual) 0.4 10^3/uL (0.5-4.7) L 11/16/16 04:25 Absolute Monocytes Not Reportable 11/16/16 04:25 Abs Monocytes (Manual) 0.3 10^3/uL (0.1-1.4) 11/16/16 04:25 Absolute Eosinophils Not Reportable 11/16/16 04:25 Absolute Eos (Manual) 0.0 10^3/uL (0.0-0.6) 11/16/16 04:25 Absolute Basophils Not Reportable 11/16/16 04:25 Abs Basophils (Manual) 0.0 10^3/uL (0.0-0.2) 11/16/16 04:25 Toxic Granulation 1+ 11/16/16 04:25 Clumped Platelets PRESENT 11/16/16 04:25 Platelet Comment ADEQUATE 11/16/16 04:25 Polychromasia SLIGHT 11/16/16 04:25 Poikilocytosis SLIGHT 11/16/16 04:25 Macrocytosis 1+ 11/16/16 04:25 Target Cells SLIGHT 11/16/16 04:25 Rouleaux SLIGHT 11/15/16 02:19 Sodium 138.2 mmol/L (137-145) 11/16/16 04:25 Potassium 3.9 mmol/L (3.6-5.0) 11/16/16 04:25 Chloride 102 mmol/L (98-107) 11/16/16 04:25 Carbon Dioxide 23 mmol/L (22-30) 11/16/16 04:25 Anion Gap 13 (5-19) 11/16/16 04:25 BUN 24 mg/dL (7-20) H 11/16/16 04:25 Creatinine 0.95 mg/dL (0.52-1.25) 11/16/16 04:25 Est GFR ( Amer) > 60 (>60) 11/16/16 04:25 Est GFR (Non-Af Amer) 57 (>60) L 11/16/16 04:25 Glucose 155 mg/dL (75-110) H 11/16/16 04:25 Calcium 10.2 mg/dL (8.4-10.2) 11/16/16 04:25 Magnesium 2.6 mg/dL (1.6-2.3) H 11/15/16 03:09 Impressions: Chest X-Ray 11/14/16 23:54 IMPRESSION: No acute radiographic finding in the chest. Qualifiers PATEINT BEING DISCHARGED WITH ANY OF THE FOLLOWING DIAGNOSIS?: No Plan Discharge Plan: The patient is a follow with primary care provider within one week for hospital follow-up. The patient will also need to follow-up pulmonary nodule. Time Spent: Less than 30 Minutes
== END 2016-11-17 13:05 | disposition home or self-care (01) | DRG 190 ==
LOC: ER 23:11 → EH 11-15 04:41 → 4S 11-15 07:53 → OBSVTOIN 11-15 08:55
PROVIDERS: ADMIT Internal Medicine; ATTEND Internal Medicine
DX: J44.1 Chronic obstructive pulmonary disease with (acute) exacerbation (principal); J96.21 Acute and chronic respiratory failure with hypoxia; J45.41 Moderate persistent asthma with (acute) exacerbation; E87.1 Hypo-osmolality and hyponatremia; E87.6 Hypokalemia; R91.1 Solitary pulmonary nodule; E78.5 Hyperlipidemia, unspecified; I10 Essential (primary) hypertension; K21.9 Gastro-esophageal reflux disease without esophagitis; Z87.891 Personal history of nicotine dependence; Z79.82 Long term (current) use of aspirin; Z79.51 Long term (current) use of inhaled steroids; Z79.899 Other long term (current) drug therapy; Z88.2 Allergy status to sulfonamides; Z88.8 Allergy status to other drugs, medicaments and biological substances
CPT/HCPCS: 36415; 71010; 80048; 83735; 85025; 93005; 93010; 94640; 94667; 94668; 94799; 96360; 96361; 99285; G0378; J0692; J1644; J1956; J2920; J3475; J3490; J7030; J7512; J7620

== ENCOUNTER 2016-12-03 17:32 | Emergency (ER) | payer MEDICARE, OTHER ==
--- NOTE | 2016-12-03 19:39 | ER Document Report ---
ED Medical Screen (RME) - General Chief Complaint: Vomiting Stated Complaint: STOMACH PAIN Time Seen by Provider: 12/03/16 19:37 Notes: Patient has not been feeling well this week. She has had some swelling of her feet for about 3 days. She went to see a local doctor Analilia who did some blood work and they called today to say that her renal function was decreased and her blood sugar was increased, at 140. Patient says she vomited all day today. Had some diarrhea yesterday. Had a headache since this morning. Her bones are aching and her back hurts. Not sure if you have fever, but has felt cold and had chills. Patient was admitted to [facility] for 3 or 4 day stay for bronchitis about a month ago. No known heart disease. Not diabetic. TRAVEL OUTSIDE OF THE [place] IN LAST 30 DAYS: No - Related Data Allergies/Adverse Reactions: Sulfa (Sulfonamide Antibiotics) Allergy (Verified 12/03/16 17:36) UNKNOWN lorazepam [From Ativan] Adverse Reaction (Mild, Verified 12/03/16 17:36) Confusion Irritability Past Medical History - Past Medical History Cardiac Medical History: Reports: Hx Hypercholesterolemia, Hx Hypertension Denies: Hx Congestive Heart Failure, Hx Coronary Artery Disease, Hx DVT, Hx Heart Attack, Hx Pulmonary Embolism Pulmonary Medical History: Reports: Hx Asthma Denies: Hx Bronchitis, Hx COPD, Hx Pneumonia Neurological Medical History: Reports: Hx Migraine - Occasional migraine headaches, but not very often. Denies: Hx Cerebrovascular Accident, Hx Seizures Endocrine Medical History: Denies: Hx Diabetes Mellitus Type 1, Hx Diabetes Mellitus Type 2, Hx Hyperthyroidism, Hx Hypothyroidism Renal/ Medical History: Denies: Hx Peritoneal Dialysis Malignancy Medical History: Reports: Hx Skin Cancer - Previous excision of skin cancer from her face. GI Medical History: Reports: Hx Gastroesophageal Reflux Disease. Denies: Hx Cirrhosis, Hx Hepatitis, Hx Hiatal Hernia, Hx Ulcer Musculoskeltal Medical History: Reports Hx Arthritis, Reports Hx Musculoskeletal Deformity Psychiatric Medical History: Reports: Hx Anxiety Denies: Hx Depression Infectious Medical History: Denies: Hx Hepatitis Past Surgical History: Reports: Hx Tubal Ligation. Denies: Hx Hysterectomy, Hx Mastectomy, Hx Open Heart Surgery, Hx Pacemaker - Immunizations Immunizations up to date: No Hx Diphtheria, Pertussis, Tetanus Vaccination: No Physical Exam - Vital signs Vitals: Temp Pulse Resp BP Pulse Ox 98.2 F 73 18 124/70 96 12/03/16 17:36 12/03/16 17:36 12/03/16 17:36 12/03/16 17:36 12/03/16 17:36 Course - Vital Signs Vital signs: Temp Pulse Resp BP Pulse Ox 98.2 F 73 18 124/70 96 12/03/16 17:36 12/03/16 17:36 12/03/16 17:36 12/03/16 17:36 12/03/16 17:36
[2016-12-03 20:42] LABS: ABSOLUTE EOSINOPHILS # (AUTO) 0.1 10^3/uL (0.0-0.6); ABSOLUTE LYMPHOCYTES (AUTO) 0.5 10^3/uL (0.5-4.7); ABSOLUTE MONOCYTES (AUTO) 0.4 10^3/uL (0.1-1.4); ABSOLUTE NEUT (AUTO) 3.1 10^3/uL (1.7-8.2); BASOPHILS % (AUTO) 0.4 % (0-2); EOSINOPHILS % (AUTO) 1.7 % (0-6); HEMATOCRIT 40.7 % (36.0-47.0); HEMOGLOBIN 13.6 g/dL (12.0-15.5); HGB HCT DIFFERENCE 0.1; LYMPHOCYTES % (AUTO) 11.2 % (13-45); MEAN CORPUSCULAR HEMOGLOBIN 33.4 pg (27.0-33.4); MEAN CORPUSCULAR HGB CONC 33.3 g/dL (32.0-36.0); MEAN CORPUSCULAR VOLUME 100 fl (80-97); MONOCYTES % (AUTO) 10.3 % (3-13); RED BLOOD COUNT 4.06 10^6/uL (3.72-5.28); RED CELL DISTRIBUTION WIDTH 13.1 % (11.5-14.0); SEGMENTED NEUTROPHILS % (AUTO) 76.4 % (42-78); WHITE BLOOD COUNT 4.1 10^3/uL (4.0-10.5)
[2016-12-03 20:50] LABS: APPEARANCE,URINE CLEAR; BILIRUBIN,URINE NEGATIVE (NEGATIVE); GLUCOSE, URINE NEGATIVE (NEGATIVE); KETONES,URINE TRACE mg/dL (NEGATIVE); LEUKOCYTE ESTERASE,URINE NEGATIVE (NEGATIVE); NITRITE,URINE NEGATIVE (NEGATIVE); PROTEIN,URINE NEGATIVE (NEGATIVE); URINE SPECIFIC GRAVITY 1.014; UROBILINOGEN,URINE NEGATIVE mg/dL (<2.0)
--- NOTE | 2016-12-03 20:50 | RADIOLOGY REPORT (SQ) ---
EXAM DESCRIPTION: CHEST PA/LAT COMPLETED DATE/TIME: 12/03/2016 8:33 pm REASON FOR STUDY: Cough, fever, body aches COMPARISON: April 2016 EXAM PARAMETERS: NUMBER OF VIEWS: two views TECHNIQUE: Digital Frontal and Lateral radiographic views of the chest acquired. RADIATION DOSE: NA LIMITATIONS: none FINDINGS: LUNGS AND PLEURA: No opacities, masses or pneumothorax. No pleural effusion. MEDIASTINUM AND HILAR STRUCTURES: No masses or contour abnormalities. HEART AND VASCULAR STRUCTURES: Heart normal size. No evidence for failure. BONES: No acute findings. HARDWARE: None in the chest. OTHER: No other significant finding. IMPRESSION: NO SIGNIFICANT RADIOGRAPHIC FINDING IN THE CHEST. TECHNICAL DOCUMENTATION: JOB ID: [id number] [employer]- All Rights Reserved
[2016-12-03] MEDS ORDERED: NORMAL SALINE 1000 ML 1,000 ML IV ONE (21:42)
[2016-12-03] MEDS ORDERED: ONDANSETRON HCL INJ/PF 4 MG/2 ML SDV IV ONE (21:42)
[2016-12-03 21:55] LABS: ALANINE AMINOTRANSFERASE 33 U/L (9-52); ALBUMIN 3.2 g/dL (3.5-5.0); ALKALINE PHOSPHATASE 75 U/L (38-126); ANION GAP 11 (5-19); ASPARTATE AMINO TRANSFERASE 36 U/L (14-36); BILIRUBIN,DIRECT 0.4 mg/dL (0.0-0.4); BILIRUBIN,TOTAL 0.9 mg/dL (0.2-1.3); BLOOD UREA NITROGEN 25 mg/dL (7-20); CARBON DIOXIDE 28 mmol/L (22-30); CHLORIDE 100 mmol/L (98-107); CREATININE RESULT 1.02 mg/dL (0.52-1.25); GLUCOSE 89 mg/dL (75-110); LIPASE 145.5 U/L (23-300); POTASSIUM 3.9 mmol/L (3.6-5.0); SODIUM 138.7 mmol/L (137-145)
--- NOTE | 2016-12-03 22:36 | ER Document Report ---
ED GI/ - General Chief Complaint: Vomiting Stated Complaint: STOMACH PAIN Time Seen by Provider: 12/03/16 19:37 Notes: The patient is a 76-year-old female who presents with 3 days of nausea, vomiting and diffuse abdominal pain. She is also complaining of some muscle cramping and a dull headache. She has not been able to keep any fluids down over the past few days. Denies fevers, urinary symptoms, hematemesis, diarrhea , constipation, sick contacts, recent travel, chest pain or shortness of breath. TRAVEL OUTSIDE OF THE [place] IN LAST 30 DAYS: No - Related Data Allergies/Adverse Reactions: Sulfa (Sulfonamide Antibiotics) Allergy (Verified 12/03/16 17:36) UNKNOWN lorazepam [From Ativan] Adverse Reaction (Mild, Verified 12/03/16 17:36) Confusion Irritability Past Medical History - General Information source: Patient - Social History Smoking Status: Never Smoker Family History: Arthritis, CAD, DM, Hyperlipidemia, Hypertension, Malignancy, Thyroid Disfunction Patient has suicidal ideation: No Patient has homicidal ideation: No - Past Medical History Cardiac Medical History: Reports: Hx Hypercholesterolemia, Hx Hypertension Denies: Hx Congestive Heart Failure, Hx Coronary Artery Disease, Hx DVT, Hx Heart Attack, Hx Pulmonary Embolism Pulmonary Medical History: Reports: Hx Asthma Denies: Hx Bronchitis, Hx COPD, Hx Pneumonia Neurological Medical History: Reports: Hx Migraine - Occasional migraine headaches, but not very often. Denies: Hx Cerebrovascular Accident, Hx Seizures Endocrine Medical History: Denies: Hx Diabetes Mellitus Type 1, Hx Diabetes Mellitus Type 2, Hx Hyperthyroidism, Hx Hypothyroidism Renal/ Medical History: Denies: Hx Peritoneal Dialysis Malignancy Medical History: Reports: Hx Skin Cancer - Previous excision of skin cancer from her face. GI Medical History: Reports: Hx Gastroesophageal Reflux Disease. Denies: Hx Cirrhosis, Hx Hepatitis, Hx Hiatal Hernia, Hx Ulcer Musculoskeltal Medical History: Reports Hx Arthritis, Reports Hx Musculoskeletal Deformity Psychiatric Medical History: Reports: Hx Anxiety Denies: Hx Depression Infectious Medical History: Denies: Hx Hepatitis Past Surgical History: Reports: Hx Tubal Ligation. Denies: Hx Hysterectomy, Hx Mastectomy, Hx Open Heart Surgery, Hx Pacemaker - Immunizations Immunizations up to date: No Hx Diphtheria, Pertussis, Tetanus Vaccination: No Hx Pneumococcal Vaccination: 07/05/09 Review of Systems - Review of Systems Notes: REVIEW OF SYSTEMS: CONSTITUTIONAL: -fevers, -chills EENT: -eye pain, -difficulty swallowing, -nasal congestion CARDIOVASCULAR:-chest pain, -syncope. RESPIRATORY: -cough, -SOB GASTROINTESTINAL: +abdominal pain, +nausea, +vomiting, -diarrhea GENITOURINARY: -dysuria, -hematuria MUSCULOSKELETAL: -back pain, -neck pain SKIN: -rash or skin lesions. HEMATOLOGIC: -easy bruising or bleeding. LYMPHATIC: -swollen, enlarged glands. NEUROLOGICAL: -altered mental status or loss of consciousness, -headache, - neurologic symptoms PSYCHIATRIC: -anxiety, -depression. ALL OTHER SYSTEMS REVIEWED AND NEGATIVE. Physical Exam - Vital signs Vitals: Temp Pulse Resp BP Pulse Ox 98.2 F 73 18 124/70 96 12/03/16 17:36 12/03/16 17:36 12/03/16 17:36 12/03/16 17:36 12/03/16 17:36 - Notes Notes: PHYSICAL EXAMINATION: GENERAL: Well-appearing, well-nourished and in no acute distress. HEAD: Atraumatic, normocephalic. EYES: Pupils equal round and reactive to light, extraocular movements intact, sclera anicteric, conjunctiva are normal. ENT: nares patent, oropharynx clear without exudates. Moist mucous membranes. NECK: Normal range of motion, supple without lymphadenopathy LUNGS: Breath sounds clear to auscultation bilaterally and equal. No wheezes rales or rhonchi. HEART: Regular rate and rhythm without murmurs ABDOMEN: Soft, nontender, normoactive bowel sounds. No guarding, no rebound. No masses appreciated. EXTREMITIES: Normal range of motion, no pitting or edema. No cyanosis. NEUROLOGICAL: Cranial nerves grossly intact. Normal speech, normal gait. Normal sensory and motor exams. PSYCH: Normal mood, normal affect. SKIN: Warm, Dry, normal turgor, no rashes or lesions noted. Course - Re-evaluation Re-evalutation: Pt appears well. CT obtained of her abdomen and pelvis due to her age and vague nature of the abdominal pain, which is negative for any acute findings. Her labs are unremarkable, other than showing signs of slight dehydration. After Zofran and fluids, patient did not feel nauseous and has not had no more vomiting episodes. Patient has no calf tenderness or swelling on my exam and my concern for a DVT is very low at this time. US for DVT is not available at this time at [facility]. Instructed her to drink plenty of fluids and have her follow- up with her primary care physician. Given strict return precautions and she understands. - Vital Signs Vital signs: Temp Pulse Resp BP Pulse Ox 98.2 F 73 18 124/70 96 12/03/16 17:36 12/03/16 17:36 12/03/16 17:36 12/03/16 17:36 12/03/16 17:36 - Laboratory Result Diagrams: 12/03/16 19:45 12/03/16 21:20 Laboratory results interpreted by me: 12/03/16 12/03/16 12/03/16 19:45 19:45 21:20 MCV 100 H Lymphocytes % 11.2 L BUN 25 H Est GFR (Non-Af Amer) 52 L Total Protein 6.0 L Albumin 3.2 L Urine Ketones TRACE H - Diagnostic Test Radiology reviewed: Image reviewed, Reports reviewed Radiology results interpreted by me: CT A/P: NAD Discharge - Discharge Clinical Impression: Abdominal pain Qualifiers: Abdominal location: generalized Qualified Code(s): R10.84 - Generalized abdominal pain Nausea and vomiting Qualifiers: Vomiting type: unspecified Vomiting Intractability: non-intractable Qualified Code(s): R11.2 - Nausea with vomiting, unspecified Condition: Stable Disposition: HOME, SELF-CARE Additional Instructions: Your CAT scan does not show any acute changes. You were slightly dehydrated. Take the Zofran to help with any nausea and drink plenty of fluids. Follow-up with your primary care physician this week to recheck your symptoms. ABDOMINAL PAIN: There are many causes of abdominal pain. Pain can mean a serious problem requiring surgery (such as appendicitis). It can also be an innocent problem that goes away on its own (such as a viral infection). Often, time must pass to determine the cause of pain. The physician does not feel that hospitalization is necessary, at present. Things may change within the next 24 hours. Call the doctor or come back for re- examination if any problems occur, such as: (1) Pain that becomes more severe, steady, or becomes concentrated in one specific area. Also, pain that is more severe with movement or coughing. (2) Vomiting that persists or becomes more frequent. (3) Blood in the vomitus, urine, or bowel movements. Blood in the stool may have a tarry or black appearance. (4) Shaking chills or fever greater than 100 degrees F. (5) The abdomen becomes more distended or swollen. (6) Bowel movements cease. (7) Failure to improve as expected. NORMAL EXAM AND WORKUP: At this time, your examination and workup show no significant abnormality. No significant abnormal physical findings are noted. All laboratory, EKG, and imaging (x-ray, CT scans, ultrasound) studies that were ordered show no significant abnormality. Although your examination and all studies that were ordered showed no significant abnormal finding, there are no examinations and no studies that are 100% accurate. There is always the possibility that some abnormality could exist and not be detected with physical examination or within the limits and capabilities of laboratory and other studies. You should return or follow up as you were instructed on your visit today for further evaluation if your symptoms do not resolve. ANTINAUSEA MEDICATION: You have been given a medication to suppress nausea and vomiting. This type of medication can be given as a shot, pill, or suppository. It will usually last for many hours. Pills and shots usually last six to eight hours, suppositories last about 12 hours. For the typical illness, only one or two doses of the medication may be necessary. Mild lightheadedness may occur. This type of medicine can cause drowsiness. Do not drive or operate dangerous machinery while under its influence. Do not mix with alcohol. See your doctor at once if you have muscle spasms or tightness, or uncontrollable motions (particularly of the neck, mouth, or jaw). Persistent vomiting or severe lightheadedness should also be evaluated by the physician. FOLLOW-UP CARE: If you have been referred to a physician for follow-up care, call the physician s office for an appointment as you were instructed or within the next two days. If you experience worsening or a significant change in your symptoms, notify the physician immediately or return to the Emergency Department at any time for re-evaluation. Prescriptions: Ondansetron [Zofran Odt 4 mg Tablet] 1 - 2 tab PO Q4H PRN #15 tab.rapdis PRN Reason: For Nausea/Vomiting Referrals: THELMA RAMIRES PA-C [Primary Care Provider] - Follow up as needed
--- NOTE | 2016-12-03 22:51 | RADIOLOGY REPORT (SQ) ---
EXAM DESCRIPTION: CT ABD/PELVIS WITH IV ONLY COMPLETED DATE/TIME: 12/03/2016 10:20 pm REASON FOR STUDY: RLQ abdominal pain COMPARISON: None. TECHNIQUE: CT scan of the abdomen and pelvis performed using helical scanning technique with dynamic intravenous contrast injection. No oral contrast. Images reviewed with lung, soft tissue, and bone windows. Reconstructed coronal and sagittal MPR images reviewed. Delayed images for evaluation of the urinary system also acquired. All images stored on PACS. All CT scanners at this facility use dose modulation, iterative reconstruction, and/or weight based d osing when appropriate to reduce radiation dose to as low as reasonably achievable (ALARA). [facility]: Dose Right [facility]: CareDose [facility]: Dose Right [facility]: Teradose 4D [facility]: Workiva CONTRAST TYPE AND DOSE: 61mL Isovue 370 RENAL FUNCTION: Creatinine 1.02 RADIATION DOSE: 10.22mGy. LIMITATIONS: None. FINDINGS: LOWER CHEST: No significant findings. No nodules or infiltrates. LIVER: Normal size. No masses or dilated ducts. SPLEEN: Normal size. No focal lesions. PANCREAS: No masses. No significant calcifications. No adjacent inflammation or peripancreatic fluid collections. Pancreatic duct not dilated. GALLBLADDER: No identified stones by CT criteria. No inflammatory changes to suggest cholecystitis. ADRENAL GLANDS: No significant masses or asymmetry. RIGHT KIDNEY AND URETER: No solid masses. No significant calcifications. No hydronephrosis or hyd roureter. LEFT KIDNEY AND URETER: No solid masses. No significant calcifications. No hydronephrosis or hydr oureter. AORTA AND VESSELS: No aneurysm. No dissection. Renal arteries, SMA, celiac without stenosis. RETROPERITONEUM: No retroperitoneal adenopathy, hemorrhage or masses. BOWEL AND PERITONEAL CAVITY: No masses or inflammatory changes. No free fluid or peritoneal masses. APPENDIX: Not identified PELVIS: No mass or free fluid. Normal bladder. ABDOMINAL WALL: Degenerative changes are identified in the lumbar spine with grade 1 anterolisthesis of L 4 in relation to L5 BONES: No significant or acute findings. OTHER: No other significant finding. IMPRESSION: NO SIGNIFICANT OR ACUTE FINDING IN THE ABDOMEN OR PELVIS ON CT SCAN WITH IV CONTRAST. TECHNICAL DOCUMENTATION: JOB ID: [id number] Quality ID # [id number]: Final reports with documentation of one or more dose reduction techniques (e.g., Au tomated exposure control, adjustment of the mA and/or kV according to patient size, use of iterative reconstruction technique) 2010 [employer]- All Rights Reserved
[2016-12-03 23:39] VITALS: BP 136/63
== END 2016-12-03 23:39 | disposition home or self-care (01) ==
LOC: ER 17:32
DX: R11.2 Nausea with vomiting, unspecified (principal); R10.84 Generalized abdominal pain; R51 Headache; E78.00 Pure hypercholesterolemia, unspecified; I10 Essential (primary) hypertension; J45.909 Unspecified asthma, uncomplicated; Z85.828 Personal history of other malignant neoplasm of skin; Z88.2 Allergy status to sulfonamides; Z98.51 Tubal ligation status
CPT/HCPCS: 99284; 96374; 36415; 83690; 85025; 80053; 81001; 71020; 74177; J2405

== ENCOUNTER 2017-01-12 20:41 | Emergency (ER) | payer MEDICARE, OTHER ==
[2017-01-12] MEDS ORDERED: METHYLPREDNISOLONE INJ 125 MG/2 ML SDV IV ONE (20:52)
--- NOTE | 2017-01-12 20:53 | ER Document Report ---
ED Allergic Reaction - General Chief Complaint: Allergic Reaction Stated Complaint: POSSIBLE ALLERGIC REACTION Time Seen by Provider: 01/12/17 20:51 Notes: Patient is a 76-year-old female, past medical history bronchitis, asthma, hypertension, presents after she was working in the garden and was bitten by fire ants. She started to have a diffuse pruritic rash that started around 1930. She used her last EpiPen at 1950 and took 25 milligrams p.o. Benadryl. EMS arrived and she was given 25 mg IV Benadryl and IV was started. She denies difficulty swallowing, shortness of breath, tongue swelling, nausea, vomiting or wheezing. TRAVEL OUTSIDE OF THE [place] IN LAST 30 DAYS: No - Related Data Allergies/Adverse Reactions: Sulfa (Sulfonamide Antibiotics) Allergy (Verified 12/03/16 17:36) UNKNOWN lorazepam [From Ativan] Adverse Reaction (Mild, Verified 12/03/16 17:36) Confusion Irritability Past Medical History - General Information source: Patient - Social History Smoking Status: Unknown if Ever Smoked Family History: Arthritis, CAD, DM, Hyperlipidemia, Hypertension, Malignancy, Thyroid Disfunction - Past Medical History Cardiac Medical History: Reports: Hx Hypercholesterolemia, Hx Hypertension Denies: Hx Congestive Heart Failure, Hx Coronary Artery Disease, Hx DVT, Hx Heart Attack, Hx Pulmonary Embolism Pulmonary Medical History: Reports: Hx Asthma Denies: Hx Bronchitis, Hx COPD, Hx Pneumonia Neurological Medical History: Reports: Hx Migraine - Occasional migraine headaches, but not very often. Denies: Hx Cerebrovascular Accident, Hx Seizures Endocrine Medical History: Denies: Hx Diabetes Mellitus Type 1, Hx Diabetes Mellitus Type 2, Hx Hyperthyroidism, Hx Hypothyroidism Renal/ Medical History: Denies: Hx Peritoneal Dialysis Malignancy Medical History: Reports: Hx Skin Cancer - Previous excision of skin cancer from her face. GI Medical History: Reports: Hx Gastroesophageal Reflux Disease. Denies: Hx Cirrhosis, Hx Hepatitis, Hx Hiatal Hernia, Hx Ulcer Musculoskeltal Medical History: Reports Hx Arthritis, Reports Hx Musculoskeletal Deformity Psychiatric Medical History: Reports: Hx Anxiety Denies: Hx Depression Infectious Medical History: Denies: Hx Hepatitis Past Surgical History: Reports: Hx Tubal Ligation. Denies: Hx Hysterectomy, Hx Mastectomy, Hx Open Heart Surgery, Hx Pacemaker - Immunizations Immunizations up to date: No Hx Diphtheria, Pertussis, Tetanus Vaccination: No Hx Pneumococcal Vaccination: 07/05/09 Review of Systems - Review of Systems Notes: REVIEW OF SYSTEMS: CONSTITUTIONAL: -fevers, -chills EENT: -eye pain, -difficulty swallowing, -nasal congestion CARDIOVASCULAR:-chest pain, -syncope. RESPIRATORY: -cough, -SOB GASTROINTESTINAL: -abdominal pain, - nausea, -vomiting, -diarrhea GENITOURINARY: -dysuria, -hematuria MUSCULOSKELETAL: -back pain, -neck pain SKIN: +rash HEMATOLOGIC: -easy bruising or bleeding. LYMPHATIC: -swollen, enlarged glands. NEUROLOGICAL: -altered mental status or loss of consciousness, -headache, - neurologic symptoms PSYCHIATRIC: -anxiety, -depression. ALL OTHER SYSTEMS REVIEWED AND NEGATIVE. Physical Exam - Vital signs Vitals: Temp Resp Pulse Ox 97.6 F 11 L 95 01/12/17 20:54 01/12/17 20:54 01/12/17 20:54 - Notes Notes: PHYSICAL EXAMINATION: GENERAL: Well-appearing, well-nourished and in no acute distress. HEAD: Atraumatic, normocephalic. EYES: Pupils equal round and reactive to light, extraocular movements intact, sclera anicteric, conjunctiva are normal. ENT: nares patent, oropharynx clear without exudates. Moist mucous membranes. NECK: Normal range of motion, supple without lymphadenopathy LUNGS: Breath sounds clear to auscultation bilaterally and equal. No wheezes rales or rhonchi. HEART: Regular rate and rhythm without murmurs ABDOMEN: Soft, nontender, normoactive bowel sounds. No guarding, no rebound. No masses appreciated. EXTREMITIES: Normal range of motion, no pitting or edema. No cyanosis. NEUROLOGICAL: Cranial nerves grossly intact. Normal speech, normal gait. Normal sensory and motor exams. PSYCH: Normal mood, normal affect. SKIN: Diffuse pruritic urticarial rash on abdomen, B/L arms and back Course - Re-evaluation Re-evalutation: Pt has no evidence of anaphylaxis at this time. Will add steroids and observe patient for 4 hours after her Epi injection. She received it at 19:50. Pt monitored and she had resolution of her rash. Reevaluated frequently and no airway involvement. Will discharge patient home with a refill of her EpiPen, Medrol Dosepak and anti-histamines with strict return precautions. - Vital Signs Vital signs: Temp Pulse Resp BP Pulse Ox 97.6 F 13 155/78 H 96 01/12/17 20:54 01/12/17 21:01 01/12/17 21:01 01/12/17 21:01 Discharge - Discharge Clinical Impression: Allergic reaction Qualifiers: Encounter type: initial encounter Qualified Code(s): T78.40XA - Allergy, unspecified, initial encounter Condition: Stable Disposition: HOME, SELF-CARE Additional Instructions: ACUTE ALLERGIC REACTION: Your symptoms are due to an allergic reaction. Allergy can cause hives, swelling of the hands, feet, and face, hoarseness, and difficulty swallowing or breathing. It may be due to exposure to medication, animal dander, foods, infection, or insect bites. Medication is a common cause, even when prior use of this same medication caused no problems. Acute treatment may include adrenalin and antihistamines. Usually, the specific allergic agent can't be identified unless repeated episodes occur. Home treatment includes the following: (1) Stop any suspicious medications. This will be discussed with you. (2) Oral antihistamines for the next four to five days. Example, diphenhydramine (Benadryl) every four hours. (3) You may also use cimetidine (Tagamet), ranitidine (Zantac), or famotidine ( Pepcid) every four hours if diphenhydramine is not controlling itching and hives. (4) Avoid aspirin until the hives completely disappear. (5) Avoid hot baths or showers until the hives are completely gone. Call the doctor if faintness, difficulty swallowing, tightness in the chest , or wheezing occurs. EPINEPHRINE: An injection of epinephrine (also called adrenalin) is used to treat allergic reactions, asthma, and some other medical conditions. It is a stimulant medication that consticts blood vessels, relaxes smooth muscles such as in the bronchioles of the lung, elevates blood pressure, and increases heart rate. It can temporarily make you feel very nervous and shakey, but it's affects last only a short time, about 15 to 30 minutes at most. STEROID MEDICATION INJECTION: You have been given an injection of medicine of the cortisone/steroid class. This medication is used to control inflammation or allergy. It is often continued as a pill for a short period of time, until the acute process subsides. There are usually no side effects from short-term use of cortisone-like medications. Some persons feel an increased sense of well-being and are not sleepy at bedtime. Long-term use of cortisone medications is best avoided, unless required for a severe condition. If your condition does not remit, or relapses after the course of corticosteroid medication, you should consult your physician. ACID-SUPPRESSING MEDICATION: You have a prescription for medicine which reduces the stomach's secretion of acid. Examples include Zantac, Tagament, and Pepcid. These drugs are often used to allow healing of ulcers or esophagitis. They may be needed to prevent recurrence of ulcers in some patients, or to prevent damage from acid reflux in the esophagus. Take all medication as prescribed, even after the pain is gone. Regular antacids may be added as needed if you have symptoms while taking this medicine. These medications sometimes are prescribed for allergic reactions because they have anti-histaminic effects and relieve the rash and itching of the reaction. There are usually no side effects from this medication. But, in rare cases and particularly in the elderly, serious problems can occur. Contact your doctor if there is fever, rash, hallucinations, confusion, or unusual bruising. Contact your doctor at once if you develop lightheadedness, black or bloody stool, or bloody vomitus. ANTIHISTAMINES: An antihistamine has been given and/or prescribed to control your symptoms. Antihistamines are used for many reasons, including itching, watering eyes, runny nose, allergic swelling, hives, and insect stings. Antihistamines may cause drowsiness, especially with the first dose. Do not operate machinery or drive while under the effects of the medication. Other common side effects include dry mouth and eyes. In older persons, antihistamines can occasionally cause urinary retention, constipation, and trouble focusing the eyes. Do not combine the medication with alcohol, or with any other medication without talking to your doctor. USE OF DIPHENHYDRAMINE: The use of diphenhydramine (Benadryl) has been recommended to control allergic symptoms. The 25 mg strength is available over- the-counter, as well as the elixir. This antihistamine is used for many symptoms. It's useful for itching, watering eyes and nose, allergic swelling, hives, and insect stings. The medication can be repeated four times daily. Age Elixir (12.5 mg/tsp) 25 mg pill 2-3 yr 1/2 tsp 4-8 yr 1 tsp 9-14 yr 2 tsp one tab adult 1-2 tabs Antihistamines may cause drowsiness, especially with the first dose. Do not operate machinery or drive while under the effects of the medication. Do not combine the medication with alcohol, or with any other medication without talking to your doctor. FOLLOW-UP CARE: If you have been referred to a physician for follow-up care, call the physician s office for an appointment as you were instructed or within the next two days. If you experience worsening or a significant change in your symptoms, notify the physician immediately or return to the Emergency Department at any time for re-evaluation. Prescriptions: Epinephrine [Epipen 2-Ag] 0.3 mg IM ONCE PRN #2 ml PRN Reason: Methylprednisolone [Medrol Dosepack (4 mg/Tab) 21 Tab/Dosepak] 4 mg PO ASDIR PRN #21 tab.ds.pk PRN Reason:
[2017-01-12 23:33] VITALS: BP 149/79
== END 2017-01-12 23:45 | disposition home or self-care (01) ==
LOC: ER 20:41
DX: T63.421A Toxic effect of venom of ants, accidental (unintentional), initial encounter (principal); T78.40XA Allergy, unspecified, initial encounter; Y93.H2 Activity, gardening and landscaping; Y92.007 Garden or yard of unspecified non-institutional (private) residence as the place of occurrence of the external cause; Z88.2 Allergy status to sulfonamides; E78.00 Pure hypercholesterolemia, unspecified; I10 Essential (primary) hypertension; K21.9 Gastro-esophageal reflux disease without esophagitis; Z98.51 Tubal ligation status
CPT/HCPCS: 99283; 96374; J2930

== ENCOUNTER → 2018-07-26 | Outpatient (CLI) | payer MEDICARE, OTHER ==
--- NOTE | 2018-07-26 14:56 | RADIOLOGY REPORT (SQ) ---
EXAM DESCRIPTION: LUMBAR SPINE COMPLETE COMPLETED DATE/TIME: 07/26/2018 2:41 pm REASON FOR STUDY: LOW BACK PAIN POTENTIALLY ASSOCIATED WITH RADICULOPATHY M54.5 LOW BACK PAIN COMPARISON: None. NUMBER OF VIEWS: Five views including obliques. TECHNIQUE: AP, lateral, oblique, and sacral radiographic images acquired of the lumbar spine. LIMITATIONS: None. FINDINGS: MINERALIZATION: Normal. SEGMENTATION: 5 [id number] lumbar vertebral bodies. No transitional anatomy. ALIGNMENT: Mild serpiginous thoracolumbar curvature. Grade 1 anterolisthesis of L4 on L5 and L5 on S 1, stable. VERTEBRAE: Mild anterior wedging of T12 with approximately 20% anterior height loss, stable. DISCS: Multilevel disc height loss throughout the lumbar spine greatest at L4-5 and L5-S1. POSTERIOR ELEMENTS: Lower lumbar facet arthropathy. Pars defects bilaterally at L5-S1. HARDWARE: None in the spine. PARASPINAL SOFT TISSUES: Normal. PELVIS: Intact as visualized. No fractures or worrisome bone lesions. SI joints intact. OTHER: No other significant finding. IMPRESSION: 1. No evidence of acute bony abnormality. 2. Stable grade 1 anterolisthesis of L4 on L5 and L5 on S1 with associated L5 pars defects. 3. Multilevel degenerative disc disease with disc height loss throughout the lumbar spine and lower lumbar facet arthropathy. 4. Stable T12 compression deformity. TECHNICAL DOCUMENTATION: JOB ID: [id number]- All Rights Reserved Reading location - IP/workstation name: [email or web address]
== END ==
LOC: OD 14:22
PROVIDERS: ATTEND Physician Assistant
DX: M54.5 Low back pain (principal)
CPT/HCPCS: 72110

== ENCOUNTER 2018-08-10 15:54 | Emergency (ER) | payer MEDICARE, OTHER ==
[2018-08-10] MEDS ORDERED: ASPIRIN 81 MG TABLET, CHEWABLE PO ONE (16:08)
--- NOTE | 2018-08-10 16:17 | ER Document Report ---
ED General - General Chief Complaint: Respiratory Distress Stated Complaint: DIFFICULTY BREATHING Time Seen by Provider: 08/10/18 16:08 Primary Care Provider: LILIA ROMERO PA [Primary Care Provider] - Follow up in 3-5 days TRAVEL OUTSIDE OF THE [place] IN LAST 30 DAYS: No - HPI Notes: Patient is a 77-year-old female that presents to the emergency department for chief complaint of shortness of breath and nausea. Patient states yesterday evening she started to feel ill. She reports some nausea with dry heaves, decreased appetite, lightheadedness and mild headache. She states she had chills but denies fevers. She was in Dr. Celeste's office today getting a breathing treatment and became acutely dyspneic. She does have history of COPD and has been using her albuterol daily. Dr. Celeste's office called EMS who reports that she was 90% on room air with a respiratory rate in the 40s upon arrival. EMS gave patient 1.5 inches of Nitropaste and Vasotec prior to arrival. Patient has no history of heart failure or pulmonary edema that she is aware of. She denies any chest pain. Past Medical History: Asthma Past Surgical History: Reviewed in chart Social History: Reviewed in chart Family History: Reviewed and noncontributory for presenting illness Allergies: Reviewed, see documented allergy list. REVIEW OF SYSTEMS: CONSTITUTIONAL : No fever chills No diaphoresis No recent illness EENT: No vision changes No congestion No sore throat CARDIOVASCULAR: No chest pain No palpitations RESPIRATORY: shortness of breath No cough difficulty breathing GASTROINTESTINAL: No abdominal pain nausea vomiting No diarrhea GENITOURINARY: No dysuria No hematuria No difficulty urinating MUSCULOSKELETAL: No back pain No leg pain No arm pain SKIN: No rashes No lesions LYMPHATIC: No swollen, enlarged glands. NEUROLOGICAL: No lightheadedness No headache No weakness No paresthesias PSYCHIATRIC: No anxiety No depression PHYSICAL EXAMINATION: Vital signs reviewed, nursing noted reviewed. GENERAL: well-nourished and in moderate acute distress. HEAD: Atraumatic, normocephalic. EYES: Eyes appear normal, extraocular movements intact, sclera anicteric, conjunctiva are normal. ENT: nares patent, oropharynx clear without exudates. Moist mucous membranes. NECK: Normal range of motion, supple without lymphadenopathy LUNGS: Breath sounds diminished with expiratory wheezing diffusely, tachypneic, moderate accessory muscle use HEART: Regular rate and rhythm without murmurs, +2/4 bilateral radial pulses ABDOMEN: Soft, nontender, normoactive bowel sounds. No rebound, guarding, or rigidity. No masses appreciated. EXTREMITIES: Nontender, good range of motion, no pitting or edema. NEUROLOGICAL: No focal neurological deficits. Moves all extremities spontaneously Motor and sensory grossly intact on exam. PSYCH: Anxious SKIN: Warm, Dry, normal turgor, no rashes or lesions noted on exposed skin - Related Data Allergies/Adverse Reactions: Sulfa (Sulfonamide Antibiotics) Allergy (Verified 12/03/16 17:36) UNKNOWN lorazepam [From Ativan] Adverse Reaction (Mild, Verified 12/03/16 17:36) Confusion Irritability Past Medical History - Social History Smoking Status: Former Smoker Family History: Arthritis, CAD, DM, Hyperlipidemia, Hypertension, Malignancy, Thyroid Disfunction - Past Medical History Cardiac Medical History: Reports: Hx Hypercholesterolemia, Hx Hypertension Denies: Hx Congestive Heart Failure, Hx Coronary Artery Disease, Hx DVT, Hx Heart Attack, Hx Pulmonary Embolism Pulmonary Medical History: Reports: Hx Asthma Denies: Hx Bronchitis, Hx COPD, Hx Pneumonia Neurological Medical History: Reports: Hx Migraine - Occasional migraine headaches, but not very often. Denies: Hx Cerebrovascular Accident, Hx Seizures Endocrine Medical History: Denies: Hx Diabetes Mellitus Type 1, Hx Diabetes Mellitus Type 2, Hx Hyperthyroidism, Hx Hypothyroidism Renal/ Medical History: Denies: Hx Peritoneal Dialysis Malignancy Medical History: Reports: Hx Skin Cancer - Previous excision of skin cancer from her face. GI Medical History: Reports: Hx Gastroesophageal Reflux Disease. Denies: Hx Cirrhosis, Hx Hepatitis, Hx Hiatal Hernia, Hx Ulcer Musculoskeletal Medical History: Reports Hx Arthritis, Reports Hx Musculoskeletal Deformity Psychiatric Medical History: Reports: Hx Anxiety Denies: Hx Depression Infectious Medical History: Denies: Hx Hepatitis Past Surgical History: Reports: Hx Tubal Ligation. Denies: Hx Hysterectomy, Hx Mastectomy, Hx Open Heart Surgery, Hx Pacemaker - Immunizations Immunizations up to date: No Hx Diphtheria, Pertussis, Tetanus Vaccination: No Hx Pneumococcal Vaccination: 07/05/09 Physical Exam - Vital signs Vitals: Pulse Resp BP 69 32 H 149/102 H 08/10/18 16:03 08/10/18 16:03 08/10/18 16:03 Course - Re-evaluation Re-evalutation: 08/10/18 16:17 Vitals reviewed. Nursing notes reviewed. Patient appears anxious and is tachypneic. She is on BiPAP at presentation. She reports improvement since receiving Vasotec and Nitropaste by EMS. Patient has diffuse wheezing and will be given Solu-Medrol and DuoNeb for her COPD. 08/10/18 17:15 Patient was reevaluated and had significant improvement of her respiratory status. BiPAP was removed and she is oxygenating well at 96% on room air. She has some mild tachypnea with mild increased work of breathing. She states she is feeling much better now that the BiPAP has been removed. I will remove patient's Nitropaste. Her chest x-ray shows no pulmonary edema or other acute process. There was a likely nipple shadow and I do not suspect underlying mass lesion. We will continue to monitor patient's respiratory status Patient remained stable on room air and has not had any further respiratory distress. Her tachypnea has completely resolved and presented similar to panic attack with its rapid resolution. She does also have underlying wheezing likely related to COPD exacerbation. Patient's workup today is unremarkable. She will be started on prednisone for her wheezing. She currently feels much better and would like to be discharged home. She is stable on room air. Family in agreement with discharge. Patient given return precautions and verbalized understanding. She will otherwise follow closely with her PCP. Laboratory 08/10/18 08/10/18 08/10/18 15:56 15:56 15:56 WBC 8.5 RBC 4.14 Hgb 14.0 Hct 39.9 MCV 96 MCH 33.8 H MCHC 35.1 RDW 13.5 Plt Count 246 Seg Neutrophils % 58.2 Lymphocytes % 30.3 Monocytes % 9.9 Eosinophils % 0.7 Basophils % 0.9 Absolute Neutrophils 5.0 Absolute Lymphocytes 2.6 Absolute Monocytes 0.8 Absolute Eosinophils 0.1 Absolute Basophils 0.1 Sodium Cancelled Potassium Cancelled Chloride Cancelled Carbon Dioxide Cancelled Anion Gap Cancelled BUN Cancelled Creatinine Cancelled Est GFR ( Amer) Cancelled Est GFR (Non-Af Amer) Cancelled Glucose Cancelled Calcium Cancelled Total Bilirubin Cancelled Direct Bilirubin Cancelled Neonat Total Bilirubin Cancelled Neonat Direct Bilirubin Cancelled Neonat Indirect Bili Cancelled AST Cancelled ALT Cancelled Alkaline Phosphatase Cancelled Troponin I < 0.012 Total Protein Cancelled Albumin Cancelled Lipase 08/10/18 08/10/18 08/10/18 15:56 18:26 19:35 WBC RBC Hgb Hct MCV MCH MCHC RDW Plt Count Seg Neutrophils % Lymphocytes % Monocytes % Eosinophils % Basophils % Absolute Neutrophils Absolute Lymphocytes Absolute Monocytes Absolute Eosinophils Absolute Basophils Sodium Cancelled Potassium Cancelled Chloride Cancelled Carbon Dioxide Cancelled Anion Gap Cancelled BUN Cancelled Creatinine Cancelled Est GFR ( Amer) Cancelled Est GFR (Non-Af Amer) Cancelled Glucose Cancelled Calcium Cancelled Total Bilirubin Cancelled Direct Bilirubin Cancelled Neonat Total Bilirubin Cancelled Neonat Direct Bilirubin Cancelled Neonat Indirect Bili Cancelled AST Cancelled ALT Cancelled Alkaline Phosphatase Cancelled Troponin I < 0.012 Total Protein Cancelled Albumin Cancelled Lipase 82.9 08/10/18 19:35 WBC RBC Hgb Hct MCV MCH MCHC RDW Plt Count Seg Neutrophils % Lymphocytes % Monocytes % Eosinophils % Basophils % Absolute Neutrophils Absolute Lymphocytes Absolute Monocytes Absolute Eosinophils Absolute Basophils Sodium 139.4 Potassium 3.8 Chloride 102 Carbon Dioxide 27 Anion Gap 10 BUN 45 H Creatinine 1.32 H Est GFR ( Amer) 47 L Est GFR (Non-Af Amer) 39 L Glucose 90 Calcium 9.8 Total Bilirubin 1.3 Direct Bilirubin 0.2 Neonat Total Bilirubin Not Reportable Neonat Direct Bilirubin Not Reportable Neonat Indirect Bili Not Reportable AST 29 ALT 25 Alkaline Phosphatase 105 Troponin I Total Protein 6.3 Albumin 3.8 Lipase - Vital Signs Vital signs: Temp Pulse Resp BP Pulse Ox 98.4 F 69 12 156/78 H 93 08/10/18 21:34 08/10/18 16:03 08/10/18 21:34 08/10/18 21:34 08/10/18 21:34 - Laboratory Result Diagrams: 08/10/18 15:56 08/10/18 19:35 Laboratory results interpreted by me: 08/10/18 08/10/18 15:56 19:35 MCH 33.8 H BUN 45 H Creatinine 1.32 H Est GFR ( Amer) 47 L Est GFR (Non-Af Amer) 39 L - EKG Interpretation by Me Additional EKG results interpreted by me: 08/10/18 16:21 Interpreted by myself 1609: Normal sinus rhythm, rate 67, normal axis, no ectopy, no STEMI Discharge - Discharge Clinical Impression: Shortness of breath Asthma exacerbation Qualifiers: Asthma severity: mild Asthma persistence: intermittent Qualified Code(s): J45.21 - Mild intermittent asthma with (acute) exacerbation Condition: Stable Disposition: HOME, SELF-CARE Instructions: Asthma ([facility]), Panic Attack ([facility]) Additional Instructions: Please return to the emergency department if you have any worsening, or concern of your symptoms. Please return to the emergency department if you develop chest pain, difficulty breathing, severe abdominal pain, or ongoing vomiting. Please follow-up with your primary care physician in 2-3 days and any other recommended physicians. If prescribed, take all medications as directed. If you have any questions or concerns do not hesitate to return the emergency department for evaluation. [] Prescriptions: RX: Prednisone [Deltasone 20 mg Tablet] 2 tab PO DAILY 5 Days tablet Referrals: LILIA ROMERO PA [Primary Care Provider] - Follow up in 3-5 days
[2018-08-10] MEDS ORDERED: IPRATROPIUM/ALBUTEROL 0.5-2.5 MG/3 ML AMPUL NEB ONE (16:18)
[2018-08-10] MEDS ORDERED: ALBUTEROL SULFATE 0.083% NEB 2.5 MG/3 ML AMPUL NEB ONE (16:18)
[2018-08-10] MEDS ORDERED: METHYLPREDNISOLONE INJ 125 MG/2 ML SDV IV ONE (16:18)
[2018-08-10 16:32] LABS: ABSOLUTE BASOPHILS # (AUTO) 0.1 10^3/uL (0.0-0.2); ABSOLUTE EOSINOPHILS # (AUTO) 0.1 10^3/uL (0.0-0.6); ABSOLUTE LYMPHOCYTES (AUTO) 2.6 10^3/uL (0.5-4.7); ABSOLUTE MONOCYTES (AUTO) 0.8 10^3/uL (0.1-1.4); BASOPHILS % (AUTO) 0.9 % (0-2); EOSINOPHILS % (AUTO) 0.7 % (0-6); HEMATOCRIT 39.9 % (36.0-47.0); LYMPHOCYTES % (AUTO) 30.3 % (13-45); MEAN CORPUSCULAR HEMOGLOBIN 33.8 pg (27.0-33.4); MEAN CORPUSCULAR HGB CONC 35.1 g/dL (32.0-36.0); MEAN CORPUSCULAR VOLUME 96 fl (80-97); MONOCYTES % (AUTO) 9.9 % (3-13); PLATELET COUNT 246 10^3/uL (150-450); RED BLOOD COUNT 4.14 10^6/uL (3.72-5.28); RED CELL DISTRIBUTION WIDTH 13.5 % (11.5-14.0); SEGMENTED NEUTROPHILS % (AUTO) 58.2 % (42-78); TOTAL CELLS COUNTED % (AUTO) 100 %; WHITE BLOOD COUNT 8.5 10^3/uL (4.0-10.5)
--- NOTE | 2018-08-10 16:35 | RADIOLOGY REPORT (SQ) ---
EXAM DESCRIPTION: CHEST SINGLE VIEW COMPLETED DATE/TIME: 08/10/2018 4:28 pm REASON FOR STUDY: shortness of breath COMPARISON: 12/03/2016 EXAM PARAMETERS: NUMBER OF VIEWS: One view. TECHNIQUE: Single frontal radiographic view of the chest acquired. RADIATION DOSE: NA LIMITATIONS: None. FINDINGS: LUNGS AND PLEURA: There is a small nodular density in the left cardiophrenic angle most li chandrika prominent nipple shadow. Lung quintanilla otherwise clear. No effusions. No pneumothorax. MEDIASTINUM AND HILAR STRUCTURES: No masses. Contour normal. HEART AND VASCULAR STRUCTURES: Heart normal in size. Normal vasculature. BONES: No acute findings. HARDWARE: None in the chest. OTHER: No other significant finding. IMPRESSION: Small nodule in the left base most likely prominent nipple shadow. This could be confir med with repeat PA chest and nipple markers in place. TECHNICAL DOCUMENTATION: JOB ID: [id number] [employer]- All Rights Reserved Reading location - IP/workstation name: [email or web address]
[2018-08-10] MEDS ORDERED: NORMAL SALINE 1000 ML 1,000 ML IV ONE (19:17)
[2018-08-10] MEDS ORDERED: NORMAL SALINE 500 ML IV ONE (19:18)
[2018-08-10 20:01] LABS: ALANINE AMINOTRANSFERASE 25 U/L (9-52); ALBUMIN 3.8 g/dL (3.5-5.0); ALKALINE PHOSPHATASE 105 U/L (38-126); ANION GAP 10 (5-19); ASPARTATE AMINO TRANSFERASE 29 U/L (14-36); BILIRUBIN,DIRECT 0.2 mg/dL (0.0-0.4); BILIRUBIN,TOTAL 1.3 mg/dL (0.2-1.3); BLOOD UREA NITROGEN 45 mg/dL (7-20); CALCIUM 9.8 mg/dL (8.4-10.2); CARBON DIOXIDE 27 mmol/L (22-30); CHLORIDE 102 mmol/L (98-107); GLUCOSE 90 mg/dL (75-110); POTASSIUM 3.8 mmol/L (3.6-5.0); SODIUM 139.4 mmol/L (137-145); TOTAL PROTEIN 6.3 g/dL (6.3-8.2)
--- NOTE | 2018-08-10 21:12 | EKG REPORT ---
SEVERITY:- NORMAL ECG - SINUS RHYTHM : Confirmed by: Barry Rodgers 10-Aug-2018 21:11:14
[2018-08-10 21:45] VITALS: BP 156/78
== END 2018-08-10 21:45 | disposition home or self-care (01) ==
LOC: ER 15:54
DX: J45.21 Mild intermittent asthma with (acute) exacerbation (principal); R06.02 Shortness of breath; R11.0 Nausea; R63.0 Anorexia; R42 Dizziness and giddiness; R51 Headache; J44.9 Chronic obstructive pulmonary disease, unspecified; Z87.891 Personal history of nicotine dependence; I10 Essential (primary) hypertension
CPT/HCPCS: 93005; 99285; 96360; 36415; 83690; 85025; 80053; 84484; 71045; 93010; 94660; A9270; J7040

== ENCOUNTER → 2019-09-01 | Outpatient (CLI) | payer MEDICARE, OTHER ==
--- NOTE | 2019-09-01 13:40 | RADIOLOGY REPORT (SQ) ---
EXAM DESCRIPTION: CHEST PA/LATERAL COMPLETED DATE/TIME: 09/01/2019 1:07 pm REASON FOR STUDY: R05 - COUGH COMPARISON: 08/10/2018 EXAM PARAMETERS: NUMBER OF VIEWS: two views TECHNIQUE: Digital Frontal and Lateral radiographic views of the chest acquired. RADIATION DOSE: NA LIMITATIONS: none FINDINGS: LUNGS AND PLEURA: No opacities, masses or pneumothorax. No pleural effusion. Previously s een left basilar nodular opacity is not identified. MEDIASTINUM AND HILAR STRUCTURES: No masses or contour abnormalities. HEART AND VASCULAR STRUCTURES: Enlarged cardiac silhouette, stable. BONES: No acute findings. HARDWARE: None in the chest. OTHER: No other significant finding. IMPRESSION: Stable enlarged cardiac silhouette without other evidence of acute cardiopulmonary proce ss. TECHNICAL DOCUMENTATION: JOB ID: [id number] 2010 [employer]- All Rights Reserved Reading location - IP/workstation name: [email or web address]
== END ==
LOC: OD 12:59
PROVIDERS: ATTEND Physician Assistant
DX: R05 Cough (principal)
CPT/HCPCS: 71046

== ENCOUNTER 2019-09-10 12:34 | Emergency (ER) | payer MEDICARE, OTHER ==
[2019-09-10 12:40] VITALS: BP 140/64
--- NOTE | 2019-09-10 12:48 | ER Document Report ---
ED Medical Screen (RME) - General Chief Complaint: Cough Stated Complaint: COUGH Primary Care Provider: LILIA ROMERO PA [Primary Care Provider] - Follow up as needed Mode of Arrival: Ambulatory Information source: Patient Notes: 78-year-old female presents to the emergency department with productive cough for the past 2 weeks. Patient reports she has no energy she is short of breath when she walks has been able to eat. Has history of asthma. Reports has been to her provider twice today treated her with a Z-Ag and doxy and she reports she is worse. Denies fever vomiting diarrhea. Respiratory rate even unlabored rhonchi noted I have greeted and performed a rapid initial assessment of this patient. A comprehensive ED assessment and evaluation of the patient, analysis of test results and completion of the medical decision making process will be conducted by additional ED providers. TRAVEL OUTSIDE OF THE [place] IN LAST 30 DAYS: No - Related Data Allergies/Adverse Reactions: Sulfa (Sulfonamide Antibiotics) Allergy (Verified 09/10/19 12:40) UNKNOWN lorazepam [From Ativan] Adverse Reaction (Mild, Verified 09/10/19 12:40) Confusion Irritability Past Medical History - Social History Chew tobacco use (# tins/day): No Frequency of alcohol use: None Drug Abuse: None - Past Medical History Cardiac Medical History: Reports: Hx Hypercholesterolemia, Hx Hypertension Denies: Hx Congestive Heart Failure, Hx Coronary Artery Disease, Hx DVT, Hx Heart Attack, Hx Pulmonary Embolism Pulmonary Medical History: Reports: Hx Asthma Denies: Hx Bronchitis, Hx COPD, Hx Pneumonia Neurological Medical History: Reports: Hx Migraine - Occasional migraine headaches, but not very often. Denies: Hx Cerebrovascular Accident, Hx Seizures Endocrine Medical History: Denies: Hx Diabetes Mellitus Type 1, Hx Diabetes Mellitus Type 2, Hx Hyperthyroidism, Hx Hypothyroidism Renal/ Medical History: Denies: Hx Peritoneal Dialysis Malignancy Medical History: Reports: Hx Skin Cancer - Previous excision of skin cancer from her face. GI Medical History: Reports: Hx Gastroesophageal Reflux Disease. Denies: Hx Cirrhosis, Hx Hepatitis, Hx Hiatal Hernia, Hx Ulcer Musculoskeltal Medical History: Reports Hx Arthritis, Reports Hx Musculoskeletal Deformity Psychiatric Medical History: Reports: Hx Anxiety Denies: Hx Depression Infectious Medical History: Denies: Hx Hepatitis Past Surgical History: Reports: Hx Tubal Ligation. Denies: Hx Hysterectomy, Hx Mastectomy, Hx Open Heart Surgery, Hx Pacemaker - Immunizations Immunizations up to date: No Hx Diphtheria, Pertussis, Tetanus Vaccination: No Physical Exam - Vital signs Vitals: Temp Pulse Resp BP Pulse Ox 98.1 F 78 18 140/64 H 89 L 09/10/19 12:38 09/10/19 12:38 09/10/19 12:38 09/10/19 12:38 09/10/19 12:38 Course - Vital Signs Vital signs: Temp Pulse Resp BP Pulse Ox 98.1 F 78 18 140/64 H 89 L 09/10/19 12:38 09/10/19 12:38 09/10/19 12:38 09/10/19 12:38 09/10/19 12:38 Doctor's Discharge - Discharge Referrals: LILIA ROMERO PA [Primary Care Provider] - Follow up as needed
--- NOTE | 2019-09-10 13:36 | RADIOLOGY REPORT (SQ) ---
EXAM DESCRIPTION: CHEST 2 VIEWS COMPLETED DATE/TIME: 09/10/2019 1:15 pm REASON FOR STUDY: cough, history of pneumonia COMPARISON: 09/01/2019 NUMBER OF VIEWS: Two view. TECHNIQUE: Frontal and lateral radiographic views of the chest acquired. LIMITATIONS: None. FINDINGS: LUNGS AND PLEURA: No opacities, masses or pneumothorax. No pleural effusion. MEDIASTINUM AND HILAR STRUCTURES: No masses. No contour abnormalities. HEART AND VASCULAR STRUCTURES: Heart enlarged without failure. Aorta normal for age. BONES: No acute findings. HARDWARE: None in the chest. OTHER: No other significant finding. IMPRESSION: CARDIAC ENLARGEMENT WITHOUT FAILURE. No evidence for pneumonia. TECHNICAL DOCUMENTATION: JOB ID: [id number] 2010 [employer]- All Rights Reserved Reading location - IP/workstation name: [email or web address]
[2019-09-10] MEDS ORDERED: IPRATROPIUM/ALBUTEROL 0.5-2.5 MG/3 ML AMPUL NEB ONE (13:59)
[2019-09-10] MEDS ORDERED: ALBUTEROL SULFATE 0.083% NEB 2.5 MG/3 ML AMPUL NEB ONE ×2 (13:59→15:13)
[2019-09-10] MEDS ORDERED: ONDANSETRON HCL INJ/PF 4 MG/2 ML SDV IV ONE (14:01)
--- NOTE | 2019-09-10 14:02 | ER Document Report ---
ED Respiratory Problem - General Chief Complaint: Cough Stated Complaint: COUGH Time Seen by Provider: 09/10/19 13:37 Primary Care Provider: LILIA ROMERO PA [NO LOCAL MD] - Follow up as needed VAN MULLER MD [Primary Care Provider] - Follow up tomorrow Mode of Arrival: Ambulatory Information source: Patient, Relative Notes: Patient presents complaining of cough for the past 2 weeks. Patient states cough became productive today. Patient reports decreased energy over the past 2 weeks. Patient states she has headache at nighttime from the coughing. Patient states the cough has affected her sleep as well. Patient denies any fever vomiting or diarrhea. Patient does report occasional nausea. Patient has had decreased appetite. TRAVEL OUTSIDE OF THE [place] IN LAST 30 DAYS: No - HPI Patient complains to provider of: Asthma, Cough Onset: Other - 2 wks Duration: Continuous Quality of pain: Achy Pain Level: 2 Context: Hx asthma Cough: Productive Sputum amount: Small At home treatment: Bronchodilators, Oral steroids Associated symptoms: Cough, Wheezing. denies: Anxiety, Bloody cough, Chest pain/discomfort, Chills, Fever Similar symptoms previously: Yes Recently seen / treated by doctor: Yes - Related Data Allergies/Adverse Reactions: Sulfa (Sulfonamide Antibiotics) Allergy (Verified 09/10/19 12:40) UNKNOWN lorazepam [From Ativan] Adverse Reaction (Mild, Verified 09/10/19 12:40) Confusion Irritability Past Medical History - General Information source: Patient - Social History Smoking Status: Never Smoker Chew tobacco use (# tins/day): No Frequency of alcohol use: None Drug Abuse: None Occupation: none Family History: Arthritis, CAD, DM, Hyperlipidemia, Hypertension, Malignancy, Thyroid Disfunction Patient has suicidal ideation: No Patient has homicidal ideation: No - Past Medical History Cardiac Medical History: Reports: Hx Hypercholesterolemia, Hx Hypertension Pulmonary Medical History: Reports: Hx Asthma Denies: Hx Bronchitis, Hx COPD, Hx Pneumonia Neurological Medical History: Reports: Hx Migraine - Occasional migraine headaches, but not very often Renal/ Medical History: Denies: Hx Peritoneal Dialysis Malignancy Medical History: Reports: Hx Skin Cancer - Previous excision of skin cancer from her face. GI Medical History: Reports: Hx Gastroesophageal Reflux Disease Musculoskeletal Medical History: Reports Hx Arthritis, Reports Hx Musculoskeletal Deformity Psychiatric Medical History: Reports: Hx Anxiety Denies: Hx Depression Past Surgical History: Reports: Hx Tubal Ligation - Immunizations Immunizations up to date: No Hx Diphtheria, Pertussis, Tetanus Vaccination: No Hx Pneumococcal Vaccination: 07/05/09 Review of Systems - Review of Systems Constitutional: Malaise. denies: Fever, Recent illness EENT: No symptoms reported Cardiovascular: No symptoms reported. denies: Chest pain, Dizziness, [place] ed Respiratory: Cough, Sputum, Wheezing Gastrointestinal: Nausea. denies: Abdominal pain, Vomiting Genitourinary: No symptoms reported. denies: Dysuria Female Genitourinary: No symptoms reported Musculoskeletal: Back pain Skin: No symptoms reported Hematologic/Lymphatic: No symptoms reported Neurological/Psychological: No symptoms reported Physical Exam - Vital signs Vitals: Temp Pulse Resp BP Pulse Ox 98.1 F 78 18 140/64 H 89 L 09/10/19 12:38 09/10/19 12:38 09/10/19 12:38 09/10/19 12:38 09/10/19 12:38 - General General appearance: Appears well, Alert In distress: None - HEENT Head: Normocephalic, Atraumatic Eyes: Normal Conjunctiva: Normal Ears: Normal External canal: Normal Nasal: Normal Mouth/Lips: Normal Pharynx: Normal Neck: Normal, Supple. No: Lymphadenopathy - Respiratory Respiratory status: No respiratory distress Chest status: Pain with cough Breath sounds: Nonproductive cough, Rhonchi, Wheezing Chest palpation: Normal - Cardiovascular Rhythm: Regular Heart sounds: S1 appreciated, S2 appreciated - Abdominal Inspection: Normal Distension: No distension Bowel sounds: Normal Tenderness: Nontender Organomegaly: No organomegaly - Back Back: Tender - Lower lumbar paraspinal tenderness. No: CVA tenderness, Vertebra tenderness - Extremities General upper extremity: Normal inspection, Normal strength General lower extremity: Normal inspection, Normal strength - Neurological Neuro grossly intact: Yes Cognition: Normal Orientation: AAOx4 [place] Coma Scale Eye Opening: Spontaneous [place] Coma Scale Verbal: Oriented [place] Coma Scale Motor: Obeys Commands [place] Coma Scale Total: 15 - Psychological Associated symptoms: Normal affect, Normal mood - Skin Skin Temperature: Warm Skin Moisture: Dry Skin Color: Normal Course - Re-evaluation Re-evalutation: 09/10/19 15:50 Patient continues with wheezing bilaterally. No tachypnea, no tachycardia. Patient's room air oxygen saturation 100% at this time. Patient feels as though she needs to be admitted so that she can get regular nebulizer treatments. 09/10/19 17:04 Patient ambulated in the hallway. Patient maintain oxygen saturation above 91% and heart rate stayed at 94. Patient did not become tachypneic. X-ray reviewed, no concern for pneumonia or pneumothorax. Patient does have mild leukocytosis although likely this can be attributed to her recent steroid use. Patient is currently taking doxycycline. Patient encouraged to continue this medication and to call her primary doctor first thing tomorrow morning for follow-up. Patient states she does have a nebulizer at home and does have the medications for the machine. Family at bedside who is agreeable with discharge plan of care. Good return precautions discussed. - Vital Signs Vital signs: Temp Pulse Resp BP Pulse Ox 98 F 78 20 140/64 H 93 09/10/19 17:40 09/10/19 12:38 09/10/19 17:40 09/10/19 12:38 09/10/19 17:40 - Laboratory Result Diagrams: 09/10/19 14:02 09/10/19 14:02 Laboratory results interpreted by me: 09/10/19 09/10/19 09/10/19 14:02 14:02 14:02 WBC 16.0 H Seg Neuts % (Manual) 88 H Lymphocytes % (Manual) 6 L Abs Neuts (Manual) 14.1 H Sodium 134.6 L BUN 45 H Est GFR ( Amer) 57 L Est GFR (MDRD) Non-Af 47 L Glucose 120 H Direct Bilirubin 0.6 H TSH 0.22 L Labs- Entire Visit 09/10/19 09/10/19 09/10/19 14:02 14:02 14:02 WBC 16.0 H RBC 4.09 Hgb 13.7 Hct 39.6 MCV 97 MCH 33.4 MCHC 34.5 RDW 12.7 Plt Count 227 Lymph % (Auto) Not Reportable [place] % (Auto) Not Reportable Eos % (Auto) Not Reportable Baso % (Auto) Not Reportable Absolute Neuts (auto) Not Reportable Absolute Lymphs (auto) Not Reportable Absolute Monos (auto) Not Reportable Absolute Eos (auto) Not Reportable Absolute Basos (auto) Not Reportable Total Counted 100 Seg Neutrophils % Not Reportable Seg Neuts % (Manual) 88 H Lymphocytes % (Manual) 6 L Monocytes % (Manual) 6 Eosinophils % (Manual) 0 Basophils % (Manual) 0 Abs Neuts (Manual) 14.1 H Abs Lymphs (Manual) 1.0 Abs Monocytes (Manual) 1.0 Absolute Eos (Manual) 0.0 Abs Basophils (Manual) 0.0 Toxic Granulation 2+ Toxic Vacuolation PRESENT Platelet Comment ADEQUATE Sodium 134.6 L Potassium 3.6 Chloride 98 Carbon Dioxide 26 Anion Gap 11 BUN 45 H Creatinine 1.11 Est GFR ( Amer) 57 L Est GFR (MDRD) Non-Af 47 L Glucose 120 H Calcium 10.2 Total Bilirubin 0.8 Direct Bilirubin 0.6 H Neonat Total Bilirubin Not Reportable Neonat Direct Bilirubin Not Reportable Neonat Indirect Bili Not Reportable AST 31 ALT 23 Alkaline Phosphatase 93 Troponin I Total Protein 7.8 Albumin 4.0 TSH 0.22 L Free T4 1.93 Free T3 pg/mL 3.16 Urine Color Urine Appearance Urine pH Ur Specific [place] Urine Protein Urine Glucose (UA) Urine Ketones Urine Blood Urine Nitrite Urine Bilirubin Urine Urobilinogen Ur Leukocyte Esterase Urine WBC (Auto) Urine RBC (Auto) Squamous Epi Cells Auto Urine Mucus (Auto) Urine Ascorbic Acid 09/10/19 09/10/19 14:02 15:55 WBC RBC Hgb Hct MCV MCH MCHC RDW Plt Count Lymph % (Auto) [place] % (Auto) Eos % (Auto) Baso % (Auto) Absolute Neuts (auto) Absolute Lymphs (auto) Absolute Monos (auto) Absolute Eos (auto) Absolute Basos (auto) Total Counted Seg Neutrophils % Seg Neuts % (Manual) Lymphocytes % (Manual) Monocytes % (Manual) Eosinophils % (Manual) Basophils % (Manual) Abs Neuts (Manual) Abs Lymphs (Manual) Abs Monocytes (Manual) Absolute Eos (Manual) Abs Basophils (Manual) Toxic Granulation Toxic Vacuolation Platelet Comment Sodium Potassium Chloride Carbon Dioxide Anion Gap BUN Creatinine Est GFR ( Amer) Est GFR (MDRD) Non-Af Glucose Calcium Total Bilirubin Direct Bilirubin Neonat Total Bilirubin Neonat Direct Bilirubin Neonat Indirect Bili AST ALT Alkaline Phosphatase Troponin I < 0.012 Total Protein Albumin TSH Free T4 Free T3 pg/mL Urine Color YELLOW Urine Appearance CLEAR Urine pH 5.0 Ur Specific [place] 1.010 Urine Protein NEGATIVE Urine Glucose (UA) NEGATIVE Urine Ketones NEGATIVE Urine Blood NEGATIVE Urine Nitrite NEGATIVE Urine Bilirubin NEGATIVE Urine Urobilinogen NEGATIVE Ur Leukocyte Esterase NEGATIVE Urine WBC (Auto) 0 Urine RBC (Auto) 1 Squamous Epi Cells Auto 1 Urine Mucus (Auto) RARE Urine Ascorbic Acid NEGATIVE - Diagnostic Test Radiology reviewed: Image reviewed, Reports reviewed - EKG Interpretation by Me EKG shows normal: Sinus rhythm Rate: Normal Rhythm: NSR Heart block present: 1st Degree Additional EKG results interpreted by me: 09/10/19 17:08 QTc 426, no ST elevation Discharge - Discharge Clinical Impression: COPD exacerbation, Wheezing Condition: Stable Disposition: HOME, SELF-CARE Instructions: Chronic Obstructive Lung Disease ([facility]), Inhaled Bronchodilators ([facility]) Additional Instructions: Return immediately for any new or worsening symptoms Followup with your primary care provider, call tomorrow to make a followup appointment Continue your steroid medication and antibiotics that you were prescribed [address] Muller's office tomorrow for follow-up. Use your nebulizer treatment at home to help with your cough and wheezing symptoms. Prescriptions: Benzonatate [Tessalon Perles 100 mg Capsule] 100 mg PO ASDIR PRN #20 capsule PRN Reason: Referrals: LILIA ROMERO PA [NO LOCAL MD] - Follow up as needed VAN MULLER MD [Primary Care Provider] - Follow up tomorrow
[2019-09-10 14:30] LABS: HEMATOCRIT 39.6 % (36.0-47.0); HEMOGLOBIN 13.7 g/dL (12.0-15.5); MEAN CORPUSCULAR HEMOGLOBIN 33.4 pg (27.0-33.4); MEAN CORPUSCULAR HGB CONC 34.5 g/dL (32.0-36.0); MEAN CORPUSCULAR VOLUME 97 fl (80-97); PLATELET COUNT 227 10^3/uL (150-450); RED BLOOD COUNT 4.09 10^6/uL (3.72-5.28); RED CELL DISTRIBUTION WIDTH 12.7 % (11.5-14.0)
[2019-09-10 14:51] LABS: BASOPHILS % (MANUAL) 0 % (0-2); EOSINOPHILS % (MANUAL) 0 % (0-6); LYMPHOCYTES % (MANUAL) 6 % (13-45); MONOCYTES % (MANUAL) 6 % (3-13); PLATELET COMMENT ADEQUATE; SEGMENTED NEUTROPHILS % (MAN) 88 % (42-78); TOTAL CELLS COUNTED 100; TOXIC GRANULATION 2+; TOXIC VACUOLATION PRESENT
[2019-09-10 14:58] LABS: ALKALINE PHOSPHATASE 93 U/L (38-126); ANION GAP 11 (5-19); ASPARTATE AMINO TRANSFERASE 31 U/L (14-36); BILIRUBIN,DIRECT 0.6 mg/dL (0.0-0.4); BILIRUBIN,TOTAL 0.8 mg/dL (0.2-1.3); BLOOD UREA NITROGEN 45 mg/dL (7-20); CALCIUM 10.2 mg/dL (8.4-10.2); CARBON DIOXIDE 26 mmol/L (22-30); CHLORIDE 98 mmol/L (98-107); GLUCOSE 120 mg/dL (75-110); POTASSIUM 3.6 mmol/L (3.6-5.0); TOTAL PROTEIN 7.8 g/dL (6.3-8.2)
[2019-09-10 15:04] LABS: FREE T3 3.16 pg/mL (2.77-5.27); FREE T4 (FREE THYROXINE) 1.93 ng/dL (0.78-2.19)
[2019-09-10] MEDS ORDERED: CEFTRIAXONE 1 GM/D5W RTU 1 GM/50 ML RTUPB IV ONE (15:13)
[2019-09-10 15:18] LABS: THYROID STIMULATING HORMONE 0.22 uIU/mL (0.47-4.68)
--- NOTE | 2019-09-10 16:14 | EKG REPORT ---
SEVERITY:- ABNORMAL ECG - SINUS RHYTHM FIRST DEGREE AVB. : Confirmed by: Jerel Hudson MD 10-Sep-2019 16:13:32
[2019-09-10 16:33] LABS: APPEARANCE,URINE CLEAR; BILIRUBIN,URINE NEGATIVE (NEGATIVE); COLOR,URINE YELLOW; GLUCOSE, URINE NEGATIVE (NEGATIVE); KETONES,URINE NEGATIVE (NEGATIVE); LEUKOCYTE ESTERASE,URINE NEGATIVE (NEGATIVE); NITRITE,URINE NEGATIVE (NEGATIVE); PROTEIN,URINE NEGATIVE (NEGATIVE); UROBILINOGEN,URINE NEGATIVE mg/dL (<2.0)
== END 2019-09-10 17:50 | disposition home or self-care (01) ==
LOC: ER 12:34
DX: J44.1 Chronic obstructive pulmonary disease with (acute) exacerbation (principal); R05 Cough; R51 Headache; R11.0 Nausea; R63.0 Anorexia; R07.9 Chest pain, unspecified; M54.9 Dorsalgia, unspecified; I44.0 Atrioventricular block, first degree; I10 Essential (primary) hypertension; Z79.899 Other long term (current) drug therapy; Z79.52 Long term (current) use of systemic steroids; Z88.2 Allergy status to sulfonamides; D72.829 Elevated white blood cell count, unspecified
CPT/HCPCS: 93005; 94640 ×2; 99285; 96375; 96365; 96366; 36415; 87040; 84439; 84443; 85025; 80053; 81001; 84484; 84481; 71046; 93010; J2405; J0696; A9270 ×2; J7620

== ENCOUNTER → 2020-07-15 | Outpatient (CLI) | payer MEDICARE ==
--- NOTE | 2020-07-15 10:41 | WOMENS IMAGING REPORT ---
EXAM DESCRIPTION: BONE DENSITY HIP/SPINE IMAGES COMPLETED DATE/TIME: 07/15/2020 10:29 am REASON FOR STUDY: Z87.81 M81.0 AGE-RELATED OSTEOPOROSIS W/O CURRENT PATHOLOGICAL FRAC COMPARISON: None. TECHNIQUE: Dual-Energy X-ray Absorptiometry (DEXA) of the AP Spine and Hip. LIMITATIONS: None. FINDINGS: LUMBAR SPINE: The bone mineral density (BMD) measured from L1-L4 in the AP projection correlates with a T-score of 0.2, which is normal as defined by the World Health Organization. BMD Change vs Baseline: N/A HIP: The bone mineral density (BMD) measured in the left hip correlates with a T-score of -2.3 in the neck , which is osteopenia as defined by the World Health Organization. BMD Change vs Baseline: N/A 10 year Fracture Risk Assessment: Major Osteoporotic Fracture: Not available. Hip Fracture: Not available. IMPRESSION: 1. LUMBAR SPINE WHO CLASSIFICATION: NORMAL. 2. HIP WHO CLASSIFICATION: OSTEOPENIA. OVERALL ASSESSMENT: WHO CLASSIFICATION: OSTEOPENIA. COMMENT: The World Health Organization defines low BMD as follows: T-score: Normal: At or above -1.0 Osteopenia: Between -1.0 and -2.5 Osteoporosis: At or below -2.5 without fractures Established osteoporosis: At or below -2.5 with fractures In general, you may wish to consider: Diagnosis Treatment Follow-up DEXA Normal BMD Prevention 2-3 years Osteopenia Prevention/Therapy 1-2 years Osteoporosis Therapy Yearly TECHNICAL DOCUMENTATION: JOB ID: [id number] [employer]- All Rights Reserved Reading location - IP/workstation name: [email or web address]
== END ==
LOC: WI 10:13
PROVIDERS: ATTEND Physician Assistant
DX: M81.0 Age-related osteoporosis without current pathological fracture (principal)
CPT/HCPCS: 77080